=== PATIENT | female | born 1965 | race Caucasian/White ===

== ENCOUNTER 2019-12-19 14:46 | Emergency (ER) | payer OTHER, SELFPAY ==
--- NOTE | ~2019-12-19 | XR_ITS ---
EXAMINATION: XR chest 2V DATE: 12/19/2019 15:56 INDICATION: Cough and flu, history of tobacco use TECHNIQUE: PA and lateral views of the chest are obtained. COMPARISON: 03/04/2014 FINDINGS: There are airspace opacities in the right middle and lower lobes. There is no pleural effus ion or pneumothorax. The cardiomediastinal silhouette is normal. There is moderate thoracic spondylos is. IMPRESSION: 1. Airspace opacities of the right middle and lower lobes, likely pneumonia. Reviewed, dictated and finalized at location A. OR ASSISTANT
[2019-12-19 14:56] VITALS: BP 141/69; PULSE 74; RESP 20; TEMP 39.1; O2SAT 100
--- NOTE | 2019-12-19 15:34 | ED.GENADULT ---
HPI - General Adult General Chief complaint: Upper Respiratory Infection Stated complaint: Cough,Chills Time Seen by Provider: 12/19/19 15:34 Source: patient Mode of arrival: ambulatory Limitations: no limitations History of Present Illness HPI narrative: 54-year-old female patient presents to the [facility] with complaints of cough chills, runny nose, stuffy nose, fatigue and overall weakness. Patient states that she did get a flu shot this year. Patient states she has been babysitting her grandchildren this week who were diagnosed with influenza last week. Patient states that her symptoms started yesterday. Patient states she has been taking ibuprofen for her symptoms. Patient is an active smoker. Related Data Home Medications Medication Instructions Recorded Confirmed atenolol 100 mg tablet 100 mg PO DAILY 10/28/19 melatonin 5 mg capsule mg PO PRN 10/28/19 metformin 500 mg 24 hr 500 mg PO DAILY 10/28/19 tablet,extended release methocarbamol 750 mg tablet 750 mg PO ONCE PRN tablet 10/28/19 milk thistle 150 mg capsule 150 mg PO BID 10/28/19 ranitidine HCl 300 mg capsule 300 mg PO DAILY 10/28/19 sertraline 25 mg tablet 25 mg PO DAILY 10/28/19 ropinirole mg 12/19/19 Allergies Allergy/AdvReac Type Severity Reaction Status Date / Time No Known Allergies Allergy Verified 10/28/19 15:25 Review of Systems Review of Systems: Narrative: CONSTITUTIONAL: Positive fever, chills, body aches and sweats. EYES: Denies visual changes, redness, or discharge. ENT: Positive rhinorrhea, congestion, denies sore throat, or otalgia. CARDIOVASCULAR: Denies chest pain, palpitations, or edema. RESPIRATORY: Positive cough with dyspnea. GASTROINTESTINAL: Denies abdominal pain, nausea, vomiting, or diarrhea. GENITOURINARY: Denies dysuria or hematuria. SKIN: Denies rash or itching. MUSCULOSKELETAL: Denies back pain, joint pain, or myalgia. NEUROLOGIC: Denies headache, numbness, or weakness. PSYCHIATRIC: Denies anxiety or depression. [facility] Family History Family History Mother Hypertension Patient's mother is Father Family history of diabetes mellitus in first degree relative Social History Social History Smoking packs per day: 1 Smoking cigarettes per day: 20.0 Smoking status: Current every day smoker Tobacco type: cigarettes Second hand tobacco smoke exposure: Yes Alcohol intake: current Comments At the time of my signature I agree with nursing past medical history, surgical, social, and family history. There is no relevant family history pertinent to the presenting complaint. Exam Narrative: Exam Narrative: GENERAL: ill-appearing, well-nourished, and in no acute distress. HEAD: Normocephalic, atraumatic. Tenderness noted to frontal maxillary sinuses on palpation EYES: PERRLA and EOMI. ENT: Nares with erythema and edema noted bilaterally, no rhinorrhea or epistaxis. Mucous membranes moist. Posterior pharynx with no erythema, tonsil enlargement, exudates or lesions present. Bilateral TMs are clear with no erythema or foreign bodies in the canal. NECK: Supple. No lymphadenopathy CHEST: Patient has decreased lung sounds noted throughout but worse in the left upper and left lower lobe. Patient is slightly tripoding and talking in slightly broken sentences and does have notable labored breathing.. HEART: Regular rate and rhythm. No murmur heard. Normal peripheral pulses. ABDOMEN: Soft, nontender, nondistended, normal active bowel sounds. EXTREMITIES: Normal range of motion. No edema. SKIN: Warm, dry, no rash. NEURO: No focal deficits. Alert and oriented x3. Course Reevaluation(s) Reevaluation #1: Reevaluated patient after her DuoNeb was completed. Patient states that she is feeling slightly better after receiving the DuoNeb. Patient's lung sounds continue to be diminished. Discussed
[2019-12-19] MEDS: ALBUTEROL SULFATE NEB 2.5 MG/3 ML INH INHALATION (16:01)
[2019-12-19] MEDS: IPRATROPIUM BR 0.02% INH SOLN 0.5 MG/2.5 ML VIAL INHALATION (16:02)
[2019-12-19 16:38] VITALS: RESP 18; O2SAT 95
== END 2019-12-19 16:38 | disposition home or self-care (01) ==
PROVIDERS: Emergency Provider Nurse Practitioner Family; PCP Internal Medicine
DX: J10.1 Influenza due to other identified influenza virus with other respiratory manifestations (principal); J18.9 Pneumonia, unspecified organism; F17.210 Nicotine dependence, cigarettes, uncomplicated; E78.00 Pure hypercholesterolemia, unspecified; I10 Essential (primary) hypertension; G47.30 Sleep apnea, unspecified; E11.9 Type 2 diabetes mellitus without complications
CPT/HCPCS: 71046; 87804; 94640; 99213; G0463

== ENCOUNTER 2020-10-02 10:19 | Emergency (ER) | payer OTHER, SELFPAY ==
--- NOTE | ~2020-10-02 | XR_ITS ---
EXAMINATION: XR elbow RT min 3V DATE: 10/02/2020 11:17 INDICATION: Right elbow pain post fall TECHNIQUE: Anteroposterior, two oblique and lateral views of the right elbow were obtained. COMPARISON: None. FINDINGS: Alignment is normal. No fracture or joint effusion. Joint spaces are normal. Mild soft tissue swellin g along the posterior medial aspect of the right elbow. IMPRESSION: 1. No right elbow joint effusion or osseous abnormality. Reviewed, dictated and finalized at location A. MING MILL SUPERVISOR
--- NOTE | ~2020-10-02 | XR_ITS ---
EXAMINATION: NASAL BONES-3+VIEWS DATE: 10/02/2020 11:17 INDICATION: Epistaxis post fall TECHNIQUE: AP and left and right lateral views of the nasal bones were obtained. COMPARISON: CT dated 09/07/2006 FINDINGS: No fractures identified. Specifically the nasal bones and visualized das of the orbits and paranas al sinuses appear intact. Unchanged mild leftward bowing of the nasal septum. No air-fluid levels a ppreciated within the paranasal sinuses. Hyperostosis frontalis. IMPRESSION: 1. No nasal bone fracture identified. Reviewed, dictated and finalized at location A. LE FOLD MACHINE OPERATOR
--- NOTE | ~2020-10-02 | XR_ITS ---
EXAMINATION: XR wrist RT min 3V DATE: 10/02/2020 10:40 INDICATION: Right wrist pain, swelling and bruising post fall TECHNIQUE: Posteroanterior, ulnar deviation, oblique, and lateral views of the right wrist were obtai yue. COMPARISON: none FINDINGS: Alignment is normal. No fracture. Moderate osteoarthritis at the first carpal metacarpal joint. Mild osteoarthritis at several of the visualized interphalangeal joints. Mild soft tissue swelling and sub cutaneous edema over the dorsum of the wrist. IMPRESSION: 1. No acute osseous abnormality. 2. Polyarticular osteoarthritis, moderate severity at the first carpometacarpal joint and mild at sev eral interphalangeal joints. Reviewed, dictated and finalized at location A. BRAKE TECHNICIAN IMPRESSION: 1. No acute osseous abnormality. 2. Polyarticular osteoarthritis, moderate severity at the first carpometacarpal joint and mild at several interphalangeal joints.
[2020-10-02 10:29] VITALS: BP 159/83; PULSE 70; RESP 18; TEMP 36.8; O2SAT 100
--- NOTE | 2020-10-02 11:05 | ED.GENADULT ---
HPI - General Adult General Chief complaint: Extremity Injury, Upper Stated complaint: Right Arm Pain Time Seen by Provider: 10/02/20 10:38 Source: patient and RN notes reviewed Mode of arrival: ambulatory Limitations: no limitations History of Present Illness HPI narrative: Patient presents today complaining of pain to her right elbow and wrist. States she has a history of dropfoot and occasionally trips and falls. She fell last night, striking her right arm against a wall, a few times until she fell down. She is complaining of pain in her right elbow, right wrist, and nose. Denies loss of consciousness, neck pain, back pain. She did have right-sided bloody nose last night as well. She currently rates her wrist pain 5/10. Denies numbness or tingling in the extremities. She has been taking ibuprofen without relief. MD complaint: Right wrist pain Related Data Home Medications Medication Instructions Recorded Confirmed melatonin 5 mg capsule mg PO 10/28/19 05/01/20 methocarbamol 750 mg tablet 750 mg PO ONCE tablet 10/28/19 05/01/20 milk thistle 150 mg capsule 150 mg PO BID 10/28/19 05/01/20 sertraline 25 mg tablet 25 mg PO DAILY 10/28/19 05/01/20 ascorbic acid (vitamin C) 500 mg 500 mg PO DAILY 04/26/20 05/01/20 tablet aspirin 325 mg tablet 325 mg PO DAILY 04/26/20 05/01/20 cholecalciferol (vitamin D3) 50 50 mcg PO DAILY 04/26/20 05/01/20 mcg (2,000 unit) capsule vitamin B complex 1 cap PO DAILY 04/26/20 05/01/20 Allergies Allergy/AdvReac Type Severity Reaction Status Date / Time No Known Allergies Allergy Verified 05/05/20 15:31 Review of Systems Review of Systems: Narrative: CONSTITUTIONAL: Denies body aches, fever, chills, or sweats. EYES: Denies visual changes, redness, or discharge. ENT: Denies rhinorrhea, congestion, sore throat, or otalgia. + Nose injury CARDIOVASCULAR: Denies chest pain, palpitations, or edema. RESPIRATORY: Denies cough or dyspnea. GASTROINTESTINAL: Denies abdominal pain, nausea, vomiting, or diarrhea. GENITOURINARY: Denies dysuria or hematuria. SKIN: Denies rash, itching, or wounds. MUSCULOSKELETAL: Denies back pain, or myalgia. + Right wrist and elbow pain NEUROLOGIC: Denies headache, numbness, tingling, or weakness. PSYCH: Denies depression or anxiety. [facility] Past Medical History Medical History (Updated 10/02/20 @ 14:57 by Mignon Arrieta, [facility], ) Foot drop Family History Family History Mother Hypertension Patient's mother is Father Family history of diabetes mellitus in first degree relative Social History Social History Smoking packs per day: 1 Smoking cigarettes per day: 20.0 Smoking status: Current every day smoker Tobacco type: cigarettes Second hand tobacco smoke exposure: Yes Alcohol intake: current Substance use: current Substance use type: marijuana Comments At time of signature, I have reviewed and agree with nursing past medical, surgical, social and family history unless otherwise noted. Please see nursing chart for further information. There is no relevant family history pertinent to the presenting complaint Exam Narrative: Exam Narrative: GENERAL: Well-appearing, well-nourished, and in no acute distress. HEAD: Normocephalic. EYES: EOMI. PERRL. No redness or drainage. Conjunctivae normal. ENT: Mucous membranes pink and moist. Tenderness to the nasal bridge with mild edema and ecchymosis without deformity. Dried blood in the right nare. Septum normal without hematoma. No rhinorrhea. NECK: Normal AROM. Supple. Nontender. No lymphadenopathy. CHEST: No respiratory distress. Clear to auscultation. HEART: Regular rate and rhythm. No murmur appreciated. Normal peripheral pulses. MUSCULOSKELETAL: No bony tenderness. EXTREMITIES: Right arm: Tenderness to the right lateral epicondyle. Tenderness
== END 2020-10-02 11:35 | disposition home or self-care (01) ==
PROVIDERS: Emergency Provider Nurse Practitioner; PCP Internal Medicine
DX: S00.33XA Contusion of nose, initial encounter (principal); W19.XXXA Unspecified fall, initial encounter; S60.221A Contusion of right hand, initial encounter; S56.911A Strain of unspecified muscles, fascia and tendons at forearm level, right arm, initial encounter; F17.210 Nicotine dependence, cigarettes, uncomplicated; E78.00 Pure hypercholesterolemia, unspecified; I10 Essential (primary) hypertension; G47.33 Obstructive sleep apnea (adult) (pediatric); E11.9 Type 2 diabetes mellitus without complications
CPT/HCPCS: 70160; 73080; 73110; 99214; G0463

== ENCOUNTER 2020-10-30 11:37 | Emergency (ER) | payer OTHER, SELFPAY ==
[2020-10-30 11:55] VITALS: BP 157/94; PULSE 70; RESP 18; TEMP 36.9; O2SAT 100
--- NOTE | 2020-10-30 12:12 | PC.NURSE ---
[facility] after hours emergency number called at [phone] at
--- NOTE | 2020-10-30 12:13 | ED.EYEPROB ---
HPI - Eye Problem General Chief complaint: Eye Problems Stated complaint: Left Eye Pain Time Seen by Provider: 10/30/20 12:00 Source: patient Mode of arrival: ambulatory Limitations: no limitations History of Present Illness HPI Narrative: Rasta Weber is a 55 yo female with a PMH of HTN, prediabetes, depression, and tobacco use, who comes to [facility] with left teye vision difficulty that started this morning. She has extended-wear contacts that she slept in last night and when she woke she could not see with her left thigh other than shapes and light, she has no pain, no swelling, her eye looks irritated but not injected. He has no nausea vomiting diarrhea or pain. She has not had this situation before this and came here rather than go to an [employer] worker at [place] because she thought it could be a corneal abrasion. Related Data Home Medications Medication Instructions Recorded Confirmed melatonin 5 mg capsule mg PO 10/28/19 05/01/20 methocarbamol 750 mg tablet 750 mg PO ONCE tablet 10/28/19 05/01/20 milk thistle 150 mg capsule 150 mg PO BID 10/28/19 05/01/20 sertraline 25 mg tablet 25 mg PO DAILY 10/28/19 05/01/20 ascorbic acid (vitamin C) 500 mg 500 mg PO DAILY 04/26/20 05/01/20 tablet aspirin 325 mg tablet 325 mg PO DAILY 04/26/20 05/01/20 cholecalciferol (vitamin D3) 50 50 mcg PO DAILY 04/26/20 05/01/20 mcg (2,000 unit) capsule vitamin B complex 1 cap PO DAILY 04/26/20 05/01/20 Allergies Allergy/AdvReac Type Severity Reaction Status Date / Time No Known Allergies Allergy Verified 05/05/20 15:31 Review of Systems Review of Systems: Narrative: CONSTITUTIONAL: Denies fever, chills, sweats. EYES: Denies visual changes, redness, discharge. ENT: Denies rhinorrhea, congestion, sore throat, otalgia. Loss of vision left eye CARDIOVASCULAR: Denies chest pain, palpitations, edema. RESPIRATORY: Denies dyspnea, wheezing, cough GASTROINTESTINAL: Denies abdominal pain, nausea, vomiting, diarrhea. GENITOURINARY: Denies dysuria, hematuria, abnormal discharge SKIN: Denies rash or itching. NEUROLOGIC: Denies numbness, or focal weakness. PSYCHIATRIC: Denies anxiety or depression. [facility] Past Medical History Medical History (Updated 10/30/20 @ 12:23 by Nadia Ramirez CNP) Essential (primary) hypertension Foot drop Other hyperlipidemia Type 2 diabetes mellitus Family History Family History Mother Hypertension Patient's mother is Father Family history of diabetes mellitus in first degree relative Social History Social History Smoking packs per day: 1 Smoking cigarettes per day: 20.0 Smoking status: Current every day smoker Tobacco type: cigarettes Second hand tobacco smoke exposure: Yes Alcohol intake: current Substance use: current Substance use type: marijuana Comments At time of signature, I agree with nursing past medical, surgical, social and family history. There is no relevant family history pertinent to the presenting complaint. Exam Narrative: Exam Narrative: GENERAL: This is a well-nourished, well-developed patient, in no distress. HEAD: normocephalic, atraumatic. EYES: Sclera clear/white. Vision is grossly intact. Has no pain in the left eye, no injection, patient denies ability to read, can see light and objects but unable to read eye chart EARS: External ears normal,. Hearing grossly intact. NOSE: External nose normal without nasal discharge, nares without redness, no rhinorrhea. THROAT: Mucous membranes moist, NECK: Neck supple, CARDIOVASCULAR: Regular rate and rhythm without murmurs, gallops, or rubs. RESPIRATORY: Clear to auscultation. Breath sounds equal bilaterally. No wheezes, rales, or rhonchi. GASTROINTESTINAL: Abdomen soft, non-tender, SKIN: warm, intact with no suspicious lesions or rash, good texture and turgor. NEURO: aw
--- NOTE | 2020-10-30 12:35 | PC.NURSE ---
[address] [facility] called back and recommended referral to [place] for evaluation. pt had been dc to f/u at [place] at 1215.
== END 2020-10-30 12:15 | disposition short-term general hospital (02) ==
PROVIDERS: Emergency Provider Nurse Practitioner; PCP Internal Medicine
DX: H53.9 Unspecified visual disturbance (principal); F17.210 Nicotine dependence, cigarettes, uncomplicated; I10 Essential (primary) hypertension; F32.9 Major depressive disorder, single episode, unspecified; R73.03 Prediabetes
CPT/HCPCS: 99212; G0463

== ENCOUNTER → 2022-02-06 12:56 | Outpatient (CLI) | payer OTHER, SELFPAY ==
--- NOTE | ~2022-02-06 | US_ITS ---
EXAMINATION: US transvaginal EXAM DATE: 02/06/2022 13:23 INDICATION: Postmenopausal bleeding. TECHNIQUE: Pelvic transvaginal sonogram was performed. There are multiple grayscale and Doppler imag es available for interpretation. There is no prior study for comparison. FINDINGS: Uterus measures 8.0 x 3.9 x 4.8 cm, with several fibroids measuring up to 1 cm in size End ometrial stripe measures 8 mm, within normal limits. There is no free pelvic fluid. Right adnexa: The ovary measures 0.8 x 0.8 x 1.0 cm and is morphologically normal. Ovarian vascular f low confirmed. Left adnexa: The ovary measures 1.8 x 1.0 x 1.6 cm and is morphologically normal. Ovarian vascular fl ow confirmed. IMPRESSION: 1. Endometrium 8 mm in thickness, considered mildly thickened for postmenopausal status. Differentia l diagnosis includes hyperplasia, polyp, cancer. 2. Small fibroids. Reviewed, dictated and finalized at location A. IMPRESSION: 1. Endometrium 8 mm in thickness, considered mildly thickened for postmenopaus al status. Differential diagnosis includes hyperplasia, polyp, cancer. 2. Small fibroids.
== END ==
PROVIDERS: PCP Internal Medicine; Visit Provider Obstetrics & Gynecology Gynecology
DX: N95.0 Postmenopausal bleeding (principal); D25.9 Leiomyoma of uterus, unspecified
CPT/HCPCS: 76830

== ENCOUNTER 2022-03-04 13:49 | Outpatient (CLI) | payer OTHER, SELFPAY ==
[2022-03-04 14:18] LABS: Anion Gap 7 mmol/L (8-16); Blood Urea Nitrogen 7 mg/dL (7-17); Calcium 9.3 mg/dL (8.4-10.2); Carbon Dioxide 27 mmol/L (22-30); Chloride 104 mmol/L (98-107); Estimated Glomerular Filt Rate > 60; Glucose 118 mg/dL (65-110); Potassium 4.9 mmol/L (3.4-5.0); Sodium 138 mmol/L (137-145)
== END 2022-03-04 13:50 | disposition home or self-care (01) ==
LOC: ANHLAB 13:51
PROVIDERS: PCP Internal Medicine; Visit Provider Anesthesiology
DX: E11.9 Type 2 diabetes mellitus without complications (principal)
CPT/HCPCS: 36415; 80048

== ENCOUNTER 2022-03-06 00:54 | Day surgery (SDC) | payer OTHER, SELFPAY ==
[2022-03-02 09:57] VITALS: BMI 33.3
--- NOTE | 2022-03-02 10:05 | PC.NURSE ---
Report to the Outpatient Waiting Room, entrance under the green pavilion located off [facility], at time __0600___ on date _03/06/22 . OR Time: . - You and your visitor will be asked a series of questions to screen for COVID 19 for your protection. - Only one visitor is allowed at this time. - The patient visitor is requested to leave or wait in car when not with patient. - A mask is required within the hospital. Patients may have clear liquids (water, carbonated beverages, clear teas, apple juice) until 3 hours prior to surgery with a maximum of 20 ounces. - No food from midnight until time of surgery - Infants may have breast milk until 4 hours before surgery, infant formula 6 hours prior to surgery. - Children will be allowed to drink immediately following surgery. If applicable, please bring a bottle or sippy cup to assist with drinking. Juice, water, soda, and popsicles are readily available. For infants on formula, please bring formula the day of surgery. Pacifiers are allowed. Take the following medications with a SIP of water the morning of surgery: ____ATENOLOL, SERTRALINE Medications to discontinue per physician VITAMINS, ASA Date to take last dose 03/02/22 Please no make-up, nail mohawk, hairspray, perfume, deodorant, or body powder the day of surgery. No jewelry (including any body piercings) or valuables the day of surgery, leave them at home. Please take a shower or bath the night before, or the morning of, surgery with an antibacterial soap. Wear comfortable, loose fitting clothing. Children are encouraged to wear pajamas. - Jewelry must be removed prior to entering the operating room. Rings and piercings that are not removed may be cut off. - The hospital will not accept responsibility for valuables. - Please leave all valuables, including medications, at home the day of surgery. If you are going home after surgery, a licensed experienced truck driver must drive you home. - NO public transportation without another adult. - We recommend that an adult stay with you for 24 hours following discharge. - We also recommend that you do not drive, make important decision, drink alcoholic beverages, or take any drugs that were not prescribed by your health care provider for at least 24 hours after your discharge time. For Pediatric surgeries, we recommend two adults accompany the child home (only one inside the building at this time). Follow any additional instructions given to you from your surgeon. If you or anyone in your household have experienced Covid symptoms in the past week, please notify your surgeon or the nurse liaison at the phone number below for possible testing. Telephone instructions given to _PATIENT and asked if any additional questions and then verbalized understanding. Patient advised to call surgeon office or pre surgery nurse liaison [phone] if any additional questions.
[2022-03-06] MEDS: ACETAMINOPHEN 500 MG TABLET 1000 MG PO (06:11)
[2022-03-06] MEDS: LACTATED RINGERS 1,000 ML 30 ML IV CONT (06:30)
[2022-03-06 06:45] VITALS: BP 165/96; PULSE 70; RESP 16; TEMP 36.1; O2SAT 98
--- NOTE | 2022-03-06 07:01 | WPDHPUPDATE1 ---
History and Physical Update Update Date/Time: 03/06/22 07:01 History and Physical has been reviewed, including an updated exam of the patient. There are NO changes in the patient's condition. Risks, benefits, and alternatives have been discussed and questions answered. Patient agrees to proceed with procedure.
--- NOTE | 2022-03-06 07:01 | PM.HPGS ---
History of Present Illness History of Present Illness Consent: Risks, benefits, and alternatives have been discussed and questions answered. Patient agrees to proceed with procedure. Chief complaint: Post Menopausal Bleeding Narrative: Rasta Weber is a 56 year old female with postmenopausal bleeding and a thickened endometrium at 8mm. It is recommended to proceed with D&C hysteroscopy. Risks of infection, bleeding, perforation, and fluid overload were reviewed. Possible pathology was discussed. Patient voiced understanding and agrees to proceed. Review of Systems Review of Systems: not repeated day of surgery; patient states no changes in status [facility] Past Medical History Medical History (Updated 03/06/22 @ 07:05 by Manasa Olson MD) Anxiety Aortic valve stenosis Essential (primary) hypertension Foot drop (normal spontaneous vaginal delivery) X2 Obstructive sleep apnea (adult) (pediatric) Other hyperlipidemia Type 2 diabetes mellitus Surgical History Surgical History (Updated 03/06/22 @ 07:04 by Manasa Olson MD) Previous back surgery Family History Family History Mother Hypertension Patient's mother is Father Family history of diabetes mellitus in first degree relative Sibling Hemochromatosis Social History Social History Smoking packs per day: 1 Smoking cigarettes per day: 20.0 Years smoked: 45 Smoking pack-years: 45.00 Smoking status: Current every day smoker Tobacco type: cigarettes Second hand tobacco smoke exposure: Yes Alcohol intake: current Drinks per week: 10 Alcohol use details: social Substance use: current Substance use type: marijuana Other substance usage details: EDIBLES- DAILY FOR SLEEP Living arrangements: with family Meds Home Medications and Allergies Home Medications Medication Instructions Recorded Confirmed Type melatonin 5 mg capsule 5 mg PO HS PRN 10/28/19 03/06/22 History milk thistle 150 mg capsule 150 mg PO DAILY 10/28/19 03/06/22 History aspirin 325 mg tablet 325 mg PO DAILY 04/26/20 03/06/22 History cholecalciferol (vitamin D3) 50 50 mcg PO DAILY 04/26/20 03/06/22 History mcg (2,000 unit) capsule vitamin B complex 1 cap PO DAILY 04/26/20 03/06/22 History metformin 500 mg 24 hr 500 mg PO DAILY #90 tablet 11/07/21 03/06/22 Rx tablet,extended release potassium chloride 20 mEq 20 meq PO DAILY #90 tablet 11/07/21 03/06/22 Rx tablet,extended release atenolol 100 mg tablet 100 mg PO DAILY #90 tablet 02/06/22 03/06/22 Rx hydrochlorothiazide 12.5 mg capsule 12.5 mg PO DAILY #90 cap 02/06/22 03/06/22 Rx irbesartan 150 mg tablet 150 mg PO DAILY #90 tablet 02/06/22 03/06/22 Rx sertraline 25 mg tablet 25 mg PO DAILY #30 tablet 02/07/22 03/06/22 Rx gemfibrozil 600 mg tablet 600 mg PO BID #180 tablet 02/22/22 03/06/22 Rx Allergies Allergy/AdvReac Type Severity Reaction Status Date / Time No Known Allergies Allergy Verified 03/06/22 06:07 Vital Signs Vital Signs - 24 hr 03/06/22 06:45 Temperature 97 F L Pulse Rate 70 Respiratory Rate 16 Blood Pressure 165/96 H Pulse Oximetry 98 Exam Const: General: healthy appearing Orientation/consciousness: patient oriented x3 GI: GI Palp: Yes Soft to palpation, No Tenderness to palpation present (GI) and No Palpable mass present : External Female Exam: normal external appearance Speculum Exam - Vagina: normal appearance of the vagina and normal vaginal discharge Speculum Exam - Cervix: normal appearance of the cervix Bimanual exam- vagina & uterus: uterine size normal and consistency normal Bimanual Exam- Adnexa, other: normal adnexae and No adnexal tenderness Neuro: General: patient oriented x3 Assessment and Plan Assessment and plan (1) Post-menopausal bleeding: Code(s): N95.0 - Postmenop
[2022-03-06 07:05] LABS: Glucose Point of Care 171 mg/dl (65-105)
--- NOTE | 2022-03-06 07:12 | WPDANESEPPF ---
Anes - Initial Pre Proc Eval Procedure: Operation Date: 03/06/22 07:30 Proposed Procedures p Hysteroscopy with Dilation and Curettage - Manasa Olson MD Date/Time: 03/06/22 07:12 Surgeon: Manasa Olson MD Pre Op Diagnosis: Post Menopausal Bleeding Patient Data Age: 56 Gender: F Height: 1.55 m Weight: 75.7 kg Last Vital Signs Temp 36.1 C L 03/06/22 06:45 Pulse 70 03/06/22 06:45 Resp 16 03/06/22 06:45 BP 165/96 H 03/06/22 06:45 Pulse Ox 98 03/06/22 06:45 Allergies Allergy/AdvReac Type Severity Reaction Status Date / Time No Known Allergies Allergy Verified 03/06/22 06:07 Home Medications Medication Instructions Recorded Confirmed Type melatonin 5 mg capsule 5 mg PO HS PRN 10/28/19 03/06/22 History milk thistle 150 mg capsule 150 mg PO DAILY 10/28/19 03/06/22 History aspirin 325 mg tablet 325 mg PO DAILY 04/26/20 03/06/22 History cholecalciferol (vitamin D3) 50 50 mcg PO DAILY 04/26/20 03/06/22 History mcg (2,000 unit) capsule vitamin B complex 1 cap PO DAILY 04/26/20 03/06/22 History metformin 500 mg 24 hr 500 mg PO DAILY #90 tablet 11/07/21 03/06/22 Rx tablet,extended release potassium chloride 20 mEq 20 meq PO DAILY #90 tablet 11/07/21 03/06/22 Rx tablet,extended release atenolol 100 mg tablet 100 mg PO DAILY #90 tablet 02/06/22 03/06/22 Rx hydrochlorothiazide 12.5 mg capsule 12.5 mg PO DAILY #90 cap 02/06/22 03/06/22 Rx irbesartan 150 mg tablet 150 mg PO DAILY #90 tablet 02/06/22 03/06/22 Rx sertraline 25 mg tablet 25 mg PO DAILY #30 tablet 02/07/22 03/06/22 Rx gemfibrozil 600 mg tablet 600 mg PO BID #180 tablet 02/22/22 03/06/22 Rx Laboratory Tests 03/06/22 07:02 POC Capillary Glucose 171 mg/dl H mg/dl (65-105) Patient hx anesthesia problems: none Family hx anesthesia problems: none Results Review: All pre-operative results and documents have been reviewed as part of the pre-operative evaluation. [facility] Past Medical History Medical History (Updated 03/06/22 @ 07:15 by Manoj Campuzano MD) Anxiety Aortic regurgitation Essential (primary) hypertension Foot drop (normal spontaneous vaginal delivery) X2 Obstructive sleep apnea (adult) (pediatric) Other hyperlipidemia Type 2 diabetes mellitus Surgical History Surgical History (Updated 03/06/22 @ 07:04 by Manasa Olson MD) Previous back surgery Family History Family History Mother Hypertension Patient's mother is Father Family history of diabetes mellitus in first degree relative Sibling Hemochromatosis Social History Social History Smoking packs per day: 1 Smoking cigarettes per day: 20.0 Years smoked: 45 Smoking pack-years: 45.00 Smoking status: Current every day smoker Tobacco type: cigarettes Second hand tobacco smoke exposure: Yes Alcohol intake: current Drinks per week: 10 Alcohol use details: social Substance use: current Substance use type: marijuana Other substance usage details: EDIBLES- DAILY FOR SLEEP Living arrangements: with family Anes - Eval Final PreProcedure Day of Procedure 03/06/22 07:12 Patient weight: obese Heart: regular rate and rhythm Lungs: clear to auscultation and normal air movement Airway: Mallampati scale class II Neurological: alert and oriented Last oral intake: >/= 8 hours ASA classification: III Emergent: no Anesthetic plan: proceed Anesthesia type and monitoring: general GIVS and LMA Results Review: All pre-operative results and documents have been reviewed as part of the pre-operative evaluation. Informed Consent: The patient's anesthetic plan and its attendant risks and benefits were discussed with the patient/family/POA. Questions were solicited and answers provided to the satisfaction of the patient/family/POA.
--- NOTE | 2022-03-06 07:45 | P.OP_ITS ---
Procedure Note - Detailed Date of Procedure 03/06/22 Pre-op Diagnosis Post Menopausal Bleeding Post-op Diagnosis Same Procedure Performed D&C hysteroscopy Surgeon Manasa Olson MD Anesthesia MAC and Local Findings Uterus sounds to 7cm and endometrium appears grossly atrophic. Description of Procedure The patient was taken to the operating room and placed under anesthesia in the dorsal lithotomy position. She was prepped and draped in usual sterile fashion. Carmichaels speculum was placed in the vagina and the cervix is grasped on the anterior lip with a tenaculum. The cervix was injected in each quadrant with 1% lidocaine. The cervix is serially dilated with Hegar to an 8. The uterus is sounded to 7cm. The diagnostic hysteroscope was placed with the above-stated findings. The hysteroscope was removed and the medium sharp curette used to cur ette the endometrium until a good uterine cry was noted in all areas. Minimal material was obtained consistent with the atrophic appearance. All instruments are removed. Sponge, needle, and instrument counts are correct per the OR staff. Estimated Blood Loss 5 Drains No Packing No Pathology Yes (Endometrial curettings) Complications No immediate complications Condition Stable Disposition PACU
[2022-03-06 07:50] VITALS: BP 114/60; PULSE 96; RESP 14; O2SAT 96
[2022-03-06 08:03] LABS: Glucose Point of Care 150 mg/dl (65-105)
[2022-03-06 08:20] VITALS: BP 114/67; PULSE 61; RESP 20
[2022-03-06 08:45] VITALS: BP 113/69; PULSE 64; RESP 16
== END 2022-03-06 09:05 | disposition home or self-care (01) ==
PROVIDERS: PCP Internal Medicine; Visit Provider Obstetrics & Gynecology Gynecology
PROC: 0U5B8ZZ Destruction of Endometrium, Via Natural or Artificial Opening Endoscopic (ICD-10-PCS; CPT 58563; principal; 2022-03-06 07:30)
DX: N95.0 Postmenopausal bleeding (principal); E11.9 Type 2 diabetes mellitus without complications; I10 Essential (primary) hypertension; E78.49 Other hyperlipidemia; G47.33 Obstructive sleep apnea (adult) (pediatric); Z79.84 Long term (current) use of oral hypoglycemic drugs; F17.210 Nicotine dependence, cigarettes, uncomplicated; E66.9 Obesity, unspecified; Z68.31 Body mass index [BMI] 31.0-31.9, adult
CPT/HCPCS: 58558; 82948; 88305; A9270; J2250; J2704; J3010; J7030; J7120

== ENCOUNTER 2022-04-26 17:18 | Emergency (ER) | payer OTHER, SELFPAY ==
--- NOTE | ~2022-04-26 | XR_ITS ---
EXAMINATION: XR chest 2V Exam Date/Time: 04/26/2022 19:10 CDT HISTORY: difficulty breathing prod cough smoker Comparison: 12/19/2019. RESULT: Lines, tubes, and devices: None. Lungs and pleura: Unchanged reticulonodular opacities may reflect chronic bronchitis. Cardiomediastinal silhouette: Stable cardiomediastinal silhouette. Other: No acute osseous or upper abdominal finding. IMPRESSION: No acute cardiopulmonary process. Reviewed, dictated and finalized at location K.
[2022-04-26 17:32] VITALS: BP 149/97; PULSE 77; RESP 30; TEMP 37.1; O2SAT 99
[2022-04-26 17:33] VITALS: BP 149/97; PULSE 77; RESP 30; TEMP 37.1; O2SAT 99
[2022-04-26 18:34] VITALS: BP 138/80; PULSE 76; RESP 22; O2SAT 98
--- NOTE | 2022-04-26 19:03 | ED.URI ---
HPI - URI/Sore Throat General Chief Complaint: Upper Respiratory Infection Stated Complaint: sob Time Seen by Provider: 04/26/22 19:03 Source: patient, RN notes reviewed and old records reviewed Mode of arrival: ambulatory Limitations: no limitations History of Present Illness HPI Narrative: 57 year old female [facility] with complaints of productive cough with shortness of breath since 0300 this morning. Patient reports no known fevers has felt hot and sweaty. Patient has history of sleep apnea and aortic insufficiency and continues to use tobacco daily. Patient reports that had similar episode a few months back and though it was just stress. Patient reports that had recent URI.Patient has had COVID vaccinations and also flu shot in 2020. MD elicited complaint: cough and other (dyspnea, tobacco abuse) Pertinent past history: other (tobacco abuse, sleep apnea and aortic insufficiency) Onset (ago): hour(s) (0300 today) Related Data Home Medications Medication Instructions Recorded Confirmed melatonin 5 mg capsule 5 mg PO HS PRN sleeplessness 10/28/19 04/26/22 milk thistle 150 mg capsule 150 mg PO DAILY 10/28/19 04/26/22 aspirin 325 mg tablet 325 mg PO DAILY 04/26/20 04/26/22 cholecalciferol (vitamin D3) 50 50 mcg PO DAILY 04/26/20 04/26/22 mcg (2,000 unit) capsule vitamin B complex 1 cap PO DAILY 04/26/20 04/26/22 Allergies Allergy/AdvReac Type Severity Reaction Status Date / Time No Known Allergies Allergy Verified 04/26/22 17:32 Review of Systems Review of Systems: CONSTITUTIONAL: Denies known fever, chills, positive for sweats. EYES: Denies visual changes, redness, or discharge. ENT: Denies rhinorrhea, congestion, sore throat, or otalgia. CARDIOVASCULAR: Denies chest pain, palpitations, or edema. RESPIRATORY:Positive for cough or dyspnea. GASTROINTESTINAL: Denies abdominal pain, nausea, vomiting, or diarrhea. GENITOURINARY: Denies dysuria or hematuria. SKIN: Denies rash or itching. MUSCULOSKELETAL: chronic back pain, joint pain, or myalgia. NEUROLOGIC: Denies headache, numbness, or weakness. PSYCHIATRIC: Positive anxiety or depression. All systems reviewed & are unremarkable except as noted in HPI and below [facility] Past Medical History Medical History (Updated 04/30/22 @ 11:33 by Jessica Rowland NP) Anxiety Aortic regurgitation Essential (primary) hypertension Foot drop Hypertension (normal spontaneous vaginal delivery) X2 Obstructive sleep apnea (adult) (pediatric) Other hyperlipidemia Type 2 diabetes mellitus Surgical History Surgical History Previous back surgery Family History Family History Mother Hypertension Patient's mother is Father Family history of diabetes mellitus in first degree relative Sibling Hemochromatosis Social History Social History Smoking packs per day: 1 Smoking cigarettes per day: 20.0 Years smoked: 45 Smoking pack-years: 45.00 Smoking status: Current every day smoker Tobacco type: cigarettes Second hand tobacco smoke exposure: Yes Alcohol intake: current Drinks per week: 10 Alcohol use details: social Substance use: current Substance use type: marijuana Other substance usage details: EDIBLES- DAILY FOR SLEEP Comments At time of signature, agree with nursing past medical, surgical, social and family history. There is no relevant family history pertinent to the presenting complaint Exam Narrative: GENERAL: Well-appearing, well-nourished, and in no acute distress. HEAD: Normocephalic, atraumatic. EYES: PERRLA and EOMI. ENT: Nares clear, no rhinorrhea or epistaxis. Mucous membranes moist.TM's normal with good light reflex, throat pink with no lesions exudates or tonsil swelling NECK: Supple.no lymphadenopathy C
== END 2022-04-26 19:49 | disposition home or self-care (01) ==
PROVIDERS: Emergency Provider Registered Nurse
DX: J40 Bronchitis, not specified as acute or chronic (principal); R06.02 Shortness of breath; I10 Essential (primary) hypertension; E78.5 Hyperlipidemia, unspecified; E11.9 Type 2 diabetes mellitus without complications; F17.210 Nicotine dependence, cigarettes, uncomplicated; Z79.82 Long term (current) use of aspirin
CPT/HCPCS: 71046; 99213; G0463

== ENCOUNTER 2023-05-03 13:57 | Emergency (ER) | payer OTHER, SELFPAY ==
--- NOTE | 2023-05-03 14:00 | ED.SKABFB ---
HPI - Skin/Abscess/Foreign Bdy General Chief complaint: Skin/Abscess/Foreign Body Stated complaint: Rash Right Leg Time Seen by Provider: 05/03/23 14:00 Source: patient Mode of arrival: ambulatory Limitations: no limitations History of Present Illness HPI narrative: Patient is a 58-year-old female who presents with red rash to right lower extremity. Patient states it is worsened over the past week. Today her skin feels tight and is read. Denies any itching or drainage from area. Has been taking ibuprofen and elevating leg. Denies any injury. States she is still able walk normally, denies any numbness, tingling, pain to foot. Related Data Home Medications Medication Instructions Recorded Confirmed melatonin 5 mg capsule 5 mg PO HS PRN sleeplessness 10/28/19 05/03/23 milk thistle 150 mg capsule 150 mg PO DAILY 10/28/19 05/03/23 aspirin 325 mg tablet 325 mg PO DAILY 04/26/20 05/03/23 cholecalciferol (vitamin D3) 50 50 mcg PO DAILY 04/26/20 05/03/23 mcg (2,000 unit) capsule vitamin B complex 1 cap PO DAILY 04/26/20 05/03/23 Allergies Allergy/AdvReac Type Severity Reaction Status Date / Time No Known Allergies Allergy Verified 05/03/23 14:07 Review of Systems Review of Systems: All systems reviewed & are unremarkable except as noted in HPI and below Constitutional: Constitutional: Denies body ache(s), Denies chills, Denies fatigue, Denies fever(s), Denies headache(s), Denies malaise and Denies weakness Eyes: Eyes: Denies blurry vision, Denies irritation and Denies loss of vision ENT: Denies otalgia, Denies headache(s), Denies nasal discharge, Denies sinus pain and Denies sore throat Cardiovascular: Cardiovascular: Denies chest pain, Denies irregular heart rhythm and Denies dyspnea Respiratory: Respiratory: Denies dyspnea Gastrointestinal: Gastrointestinal: Denies abdominal pain, Denies melena, Denies hematochezia, Denies diarrhea, Denies nausea and Denies vomiting Musculoskeletal: Musculoskeletal: Denies back pain, Denies myalgias and Denies arthralgias Integumentary/Breasts: Skin/Breast: Denies pruritus, Reports erythema, Denies rash and Reports skin swelling Neurologic: Denies headache(s), Denies loss of vision and Denies weakness Psychiatric: Psychiatric: Reports no additional psychiatric complaints Endocrine: Endocrine: Denies fatigue PMFSH Past Medical History Medical History (Updated 05/03/23 @ 14:27 by Erin Mendoza APRN) Anxiety Aortic regurgitation Essential (primary) hypertension Foot drop Hypertension (normal spontaneous vaginal delivery) X2 Obstructive sleep apnea (adult) (pediatric) Other hyperlipidemia Type 2 diabetes mellitus Surgical History Surgical History Previous back surgery Family History Family History Mother Hypertension Patient's mother is Father Family history of diabetes mellitus in first degree relative Sibling Hemochromatosis Social History Social History Smoking packs per day: 1 Smoking cigarettes per day: 20.0 Years smoked: 45 Smoking pack-years: 45.00 Smoking status: Current every day smoker Tobacco type: cigarettes Second hand tobacco smoke exposure: Yes Alcohol intake: current Drinks per week: 10 Alcohol use details: social Substance use: current Substance use type: marijuana Other substance usage details: EDIBLES- DAILY FOR SLEEP Living arrangements: with family Comments At time of signature, agree with nursing past medical, surgical, social and family history. There is no relevant family history pertinent to the presenting complaint. Exam Const: General: cooperative, healthy appearing, comfortable, no acute distress and well nourished Nutritional Appearance: well nourished Orientation/consciousness: patient orient
[2023-05-03 14:06] VITALS: BP 156/67; PULSE 70; RESP 20; TEMP 36.8; O2SAT 97
[2023-05-03 14:08] VITALS: BP 156/67; PULSE 70; RESP 20; TEMP 36.8; O2SAT 97
== END 2023-05-03 14:40 | disposition home or self-care (01) ==
PROVIDERS: Emergency Provider Nurse Practitioner Family; PCP Internal Medicine
DX: L03.115 Cellulitis of right lower limb (principal); F17.210 Nicotine dependence, cigarettes, uncomplicated; I10 Essential (primary) hypertension; E78.49 Other hyperlipidemia; E11.9 Type 2 diabetes mellitus without complications; Z79.82 Long term (current) use of aspirin; I35.1 Nonrheumatic aortic (valve) insufficiency
CPT/HCPCS: 99213; G0463

== ENCOUNTER 2023-06-29 07:39 | Outpatient (CLI) | payer OTHER, SELFPAY ==
--- NOTE | 2023-06-29 07:49 | ECHO_ITS ---
Patient Info Name: Rasta Weber Age: 58 years : 1965 Gender: Female Ht: 62 in Wt: 180 lbs BSA: 1.92 m2 HR: 66 bpm BP: 134 / 75 mmHg Heart Rhythm: Sinus Rhythm Technical Quality: Fair Exam Date: 06/29/2023 8:07 AM Exam Location: [facility] Pulmonary Patient Status: Outpatient Admit Date: 06/29/2023 Staff Ordering Physician: Antonio Krueger DO Air Compressor Mechanic: Harriet Stephenson RDCS Attending Provider: Antonio Krueger DO Referring Physician: Evans BRADY; Exam Type: CA echo doppler color flow Study Info Indications I35.0 - Nonrheumatic aortic (valve) stenosis Complete two-dimensional, color flow and Doppler transthoracic echocardiogram is performed. Summary 1. Left ventricular chamber dimension is normal. 2. Left ventricular systolic function is normal, estimated at 60-65%. 3. There is no increased left ventricular wall thickness. 4. The left ventricular diastolic function is normal. 5. The aortic valve is not well visualized. 6. There is no hemodynamically significant aortic valve stenosis. 7. There is trace aortic valve regurgitation. 8. There is mild aortic valve calcification. 9. There is trace mitral valve regurgitation. Left Ventricle Left ventricular chamber dimension is normal. Left ventricular systolic function is normal, estimated at 60-65%. There is no increased left ventricular wall thickness. The left ventricular diastolic function is normal. Right Ventricle Right ventricular chamber dimension is normal. Right ventricular systolic function is normal. Left Atria Left atrial chamber dimension is normal. Right Atria Right atrial chamber dimension is normal. Aortic Valve The aortic valve is not well visualized. There is no hemodynamically significant aortic valve stenosis. There is trace aortic valve regurgitation. There is mild aortic valve calcification. Pulmonic Valve The pulmonic valve is not well visualized. Mitral Valve The mitral valve has thickened leaflets. There is trace mitral valve regurgitation. The mitral valve annulus is mildly calcified. Tricuspid Valve The tricuspid valve leaflets are normal. There is trace tricuspid valve regurgitation. No pulmonary hypertension, estimated pulmonary arterial systolic pressure is 17 mmHg. Pericardium/Pleural The pericardium appears normal. There is small pericardial effusion. Inferior Vena Cava Normal inferior vena cava with >50% collapse upon inspiration consistent with normal right atrial pressure, 5 mmHg. Aorta The aortic root size at the sinus of Valsalva is normal. There is mild-moderate aortic atherosclerosis. Left Ventricular Outflow Tract Name Value Normal LVOT 2D LVOT Diameter 1.9 cm LVOT Doppler LVOT Peak Gradient 9 mmHg LVOT Mean Gradient 5 mmHg LVOT VTI 34 cm LVOT VTI/AV VTI Ratio 0.8 LVOT Stroke Volume 95 ml LVOT CO 5.7 l/min LVOT CI 3.0 l/min/m2 Pulmonic Valve Name
--- NOTE | 2023-07-02 10:24 | WPDPFTINT ---
PFT Procedure Performed PFT Procedure Performed Spirometry with Pre/Post Bronchodilator Plethysmography (Lung Vol) Diffusing Cap (DLCO) Flow Vol Loop PFT Interpretation Lung volumes were measured with the body plethysmography method. The elevated RV and FRC are indicative of air trapping. Spirometry showed diminished expiratory flow rates and a diminished FEV1 to FVC ratio of 64%, indicative of obstructive airway disease. Following administration of a bronchodilator there was borderline increase in forced vital capacity. Lung diffusion capacity is normal at 74% predicted. The flow-volume loop is consistent with obstructive airway disease. Impression: Moderately severe obstructive airway disease with evidence of air trapping and no response to bronchodilators on this testing. Lung diffusion capacity within the normal range.
== END 2023-06-29 07:40 | disposition home or self-care (01) ==
PROVIDERS: PCP Internal Medicine; Visit Provider Internal Medicine
DX: I35.0 Nonrheumatic aortic (valve) stenosis (principal); F17.200 Nicotine dependence, unspecified, uncomplicated; R06.00 Dyspnea, unspecified; R94.2 Abnormal results of pulmonary function studies
CPT/HCPCS: 93306; 94060; 94726; 94729

== ENCOUNTER → 2023-07-11 14:23 | Outpatient (CLI) | payer OTHER, SELFPAY ==
--- NOTE | ~2023-07-11 | US_ITS ---
EXAMINATION: US transvaginal DATE: 07/11/2023 15:09 INDICATION: Postmenopausal bleeding TECHNIQUE: Multiple endovaginal sonographic images of the pelvis were obtained. COMPARISON: 02/06/2022 FINDINGS: The uterus measures 8 x 3.9 x 4.9 cm. The endometrial complex measures 7 mm. The left ovary is not visualized however no left adnexal abnormality is seen. The right ovary measures 2.5 x 1.8 x 1.4 cm and contains a 1.2 cm cyst. There is normal vascular flow in the right ovary. There is no free fluid in the pelvis. IMPRESSION: 1. Chronic mild endometrial thickening which may be due to hyperplasia, polyp, or malignancy. Conside r endometrial sampling. Reviewed, dictated and finalized at location D. IMPRESSION: 1. Chronic mild endometrial thickening which may be due to hyperplasia, polyp, or malignancy. Consider endometrial sampling.
== END ==
PROVIDERS: PCP Internal Medicine; Visit Provider Obstetrics & Gynecology Gynecology
DX: N95.0 Postmenopausal bleeding (principal); R93.89 Abnormal findings on diagnostic imaging of other specified body structures
CPT/HCPCS: 76830

== ENCOUNTER 2023-07-24 10:05 | Outpatient (CLI) | payer OTHER, SELFPAY ==
--- NOTE | ~2023-07-24 | CT_ITS ---
EXAMINATION:CT lung screening DATE: 07/24/2023 10:29 INDICATION: Personal history of nicotine dependence. Current smoker with 75 pack year history. TECHNIQUE: Computed tomography (CT) of the chest was performed without intravenous contrast. Automate d exposure control and iterative reconstruction technique were employed. The dose-length product (DLP ) was 128.47 mGy-cm. COMPARISON: CT abdomen and pelvis 12/03/2018 FINDINGS: There is mild emphysema. There is mild atelectasis bilaterally. There is a 3 mm nodule in r ight middle lobe. There are a few scattered 1-2 mm pulmonary nodules. No pleural effusion. The heart size is normal. There are coronary artery calcifications. No pericardial effusion. There is diffuse h epatic steatosis. There is severe thoracic spondylosis. IMPRESSION: 1. Lung-RADS category 2: Benign appearance or behavior. Continue annual screening with noncontrast lo w-dose chest CT in 12 months. Reviewed, dictated and finalized at location E. IMPRESSION: 1. Lung-RADS category 2: Benign appearance or behavior. Continue annual screeni ng with noncontrast low-dose chest CT in 12 months.
== END 2023-07-24 10:06 | disposition home or self-care (01) ==
PROVIDERS: PCP Internal Medicine; Visit Provider Internal Medicine Pulmonary Disease
DX: Z12.2 Encounter for screening for malignant neoplasm of respiratory organs (principal); Z87.891 Personal history of nicotine dependence
CPT/HCPCS: 71271

== ENCOUNTER 2023-07-25 08:05 | Outpatient (CLI) | payer OTHER, SELFPAY ==
[2023-07-25 08:41] LABS: Anion Gap 5 mmol/L (8-16); Blood Urea Nitrogen 14 mg/dL (7-17); Calcium 9.5 mg/dL (8.4-10.2); Carbon Dioxide 33 mmol/L (22-30); Chloride 97 mmol/L (98-107); Estimated Glomerular Filt Rate > 60; Glucose 345 mg/dL (65-110); Potassium 4.6 mmol/L (3.4-5.0); Sodium 135 mmol/L (137-145)
== END 2023-07-25 08:06 | disposition home or self-care (01) ==
LOC: ANHSURGERY 08:09
PROVIDERS: Anesthesiology; PCP Internal Medicine; Visit Provider Obstetrics & Gynecology Gynecology
DX: E11.9 Type 2 diabetes mellitus without complications (principal); Z01.818 Encounter for other preprocedural examination
CPT/HCPCS: 36415; 80048

== ENCOUNTER 2023-07-30 01:06 | Day surgery (SDC) | payer OTHER, SELFPAY ==
[2023-07-18 13:22] VITALS: BMI 33.1
--- NOTE | 2023-07-18 13:27 | PC.NURSE ---
Addendum entered by Beverley Navarrete RN 07/19/23 14:22: PLEASE HOLD YOUR IRBESARTAN MORNING OF SURGERY UNTIL AFTER SURGERY. Original Note: Report to the Outpatient Waiting Room, entrance under the green pavilion located off [facility], at time _0745_ on date _[id number]_. Planned Procedure Time: _0945_. Time changes happen often and if your time is changed the preop area will call you the afternoon before. - You and your visitor will be asked to self-screen and do not enter if you have any COVID symptoms. - A mask is optional within the hospital at this time. Patients may have clear liquids (water, carbonated beverages, clear teas, apple juice) until 3 hours prior to surgery with a maximum of 20 ounces. - No food from midnight until time of surgery Take the following medications with a SIP of water the morning of surgery: ___Atenolol, Irbesartan, Sertraline and Trelegy DO NOT STOP ANY OF YOUR OTHER PRESCRIPTION MEDICATIONS PRIOR TO SURGERY ?EXCEPT THE FOLLOWING Medications to discontinue per physician ____All vitamins Date to take last nmmd___[id number] Please no make-up, nail belgian, hairspray, perfume, deodorant, or body powder the day of surgery. No jewelry (including any body piercings) or valuables the day of surgery, leave them at home. Please take a shower or bath the night before, or the morning of, surgery with an antibacterial soap. Wear comfortable, loose fitting clothing. - Jewelry must be removed prior to entering the operating room. Rings and piercings that are not removed may be cut off. - The hospital will not accept responsibility for valuables. - Please leave all valuables, including medications, at home the day of surgery. If you are going home after surgery, a licensed lease purchase driver must drive you home. - NO public transportation without another adult if you receive anesthesia. - We recommend that an adult stay with you for 24 hours following discharge. - We also recommend that you do not drive, make important decision, drink alcoholic beverages, or take any drugs that were not prescribed by your health care provider for at least 24 hours after your discharge time. Follow any additional instructions given to you from your surgeon. If you or anyone in your household have experienced Covid symptoms in the past week, please notify your surgeon or the nurse liaison at the phone number below for possible testing. Telephone instructions given to __Patient and asked if any additional questions and then verbalized understanding. Patient advised to call surgeon office or pre surgery nurse liaison [phone] if any additional questions.
[2023-07-30 08:13] LABS: Glucose Point of Care 305 mg/dl (65-105)
--- NOTE | 2023-07-30 08:15 | WPDHPUPDATE1 ---
History and Physical Update Update Date/Time: 07/30/23 08:15 History and Physical has been reviewed, including an updated exam of the patient. There are NO changes in the patient's condition. Risks, benefits, and alternatives have been discussed and questions answered. Patient agrees to proceed with procedure.
--- NOTE | 2023-07-30 08:15 | PM.HPGS ---
History of Present Illness History of Present Illness Consent: Risks, benefits, and alternatives have been discussed and questions answered. Patient agrees to proceed with procedure. Chief complaint: Post Menopausal Bleeding Narrative: Rasta Weber is a 58 year old female with 3 weeks bright red spotting. Patient with previous postmenopausal bleeding in January of 2022. Ultrasound at that time revealed a thickened endometrium and she underwent hysteroscopy D&C with atrophic findings and benign appearing endometrium. Patient has had no bleeding until the current episode. Pelvic ultrasound was repeated and still continues to show a chronic thickened endometrium. It was recommended to repeat the hysteroscopy D&C as it is been over a year. Risks of infection, bleeding, perforation, and possible pathology are again reviewed with the patient and she voices understanding and agrees to proceed. Review of Systems Review of Systems: not repeated day of surgery; patient states no changes in status [facility] Past Medical History Medical History (Updated 07/30/23 @ 08:19 by Manasa Olson MD) Anxiety Aortic regurgitation History of aortic valve stenosis Essential (primary) hypertension Foot drop Hypertension (normal spontaneous vaginal delivery) X2 Obstructive sleep apnea (adult) (pediatric) Other hyperlipidemia Type 2 diabetes mellitus Surgical History Surgical History (Updated 07/30/23 @ 08:19 by Manasa Olson MD) History of hysteroscopy January 2022 Previous back surgery Family History Family History Mother Hypertension Patient's mother is Father Family history of diabetes mellitus in first degree relative Sibling Hemochromatosis Social History Social History Smoking packs per day: 1 Smoking cigarettes per day: 20.0 Years smoked: 40 Smoking pack-years: 40.00 Smoking status: Current every day smoker Tobacco type: cigarettes Second hand tobacco smoke exposure: Yes Alcohol intake: current Drinks per week: 5 Alcohol use details: social Substance use: current Substance use type: marijuana Other substance usage details: EDIBLES- DAILY FOR SLEEP Lack of Transportation: No Lack of Food: Never True Current Housing: I Have Housing Concerned About Future Housing: No Difficulty Paying Gas/Electric Bills: No Difficulty Paying for Meds: No Currently Unemployed: No Education: Trade/Vocational Certificate Difficulty w/ Childcare or Family Care: No Living arrangements: with family Spiritual care concerns: No Meds Home Medications and Allergies Home Medications Medication Instructions Recorded Confirmed Type melatonin 5 mg capsule 5 mg PO HS PRN sleeplessness 10/28/19 07/18/23 History milk thistle 150 mg capsule 150 mg PO DAILY 10/28/19 07/18/23 History aspirin 325 mg tablet 325 mg PO DAILY 04/26/20 07/18/23 History cholecalciferol (vitamin D3) 50 50 mcg PO DAILY 04/26/20 07/18/23 History mcg (2,000 unit) capsule vitamin B complex 1 cap PO DAILY 04/26/20 07/18/23 History atenolol 100 mg tablet 100 mg PO DAILY #90 tabs 02/01/23 07/18/23 Rx hydrochlorothiazide 12.5 mg capsule 12.5 mg PO DAILY #90 caps 02/01/23 07/18/23 Rx irbesartan 150 mg tablet 150 mg PO DAILY #90 tabs 02/01/23 07/18/23 Rx gemfibrozil 600 mg tablet 600 mg PO BID #180 tabs 02/19/23 07/18/23 Rx metformin 500 mg 24 hr 500 mg PO DAILY #90 tabs 04/30/23 07/18/23 Rx tablet,extended release potassium chloride 20 mEq 20 meq PO DAILY #90 tabs 04/30/23 07/18/23 Rx tablet,extended release albuterol sulfate 90 mcg/actuation 2 puff inhalation QID PRN 06/07/23 07/18/23 Rx aerosol inhaler shortness of breath or wheezing #8.5 grams fluticasone fur. 100 mcg-umeclid 1 inh inhalation DAILY 07/18/23 07/18/23 History 62.5 mcg-vilant 25 mcg
[2023-07-30 08:20] VITALS: BP 181/68; PULSE 69; RESP 18; TEMP 37.1; O2SAT 97
[2023-07-30 08:37] VITALS: BP 174/80
[2023-07-30] MEDS: ACETAMINOPHEN 500 MG TABLET 1000 MG PO (08:55)
[2023-07-30] MEDS: LACTATED RINGERS 1,000 ML 30 ML IV CONT (08:56)
--- NOTE | 2023-07-30 09:13 | WPDANESEPPF ---
Anes - Initial Pre Proc Eval Procedure: Operation Date: 07/30/23 09:45 Proposed Procedures p Hysteroscopy Dilation and Curettage - Manasa Olson MD Date/Time: 07/30/23 09:13 Surgeon: Manasa Olson MD Pre Op Diagnosis: Post Menopausal Bleeding Patient Data Age: 58 Gender: F Height: 1.55 m Weight: 74 kg Last Vital Signs Temp 37.1 C 07/30/23 08:20 Pulse 69 07/30/23 08:20 Resp 18 07/30/23 08:20 BP 174/80 H 07/30/23 08:37 Pulse Ox 97 07/30/23 08:20 Allergies Allergy/AdvReac Type Severity Reaction Status Date / Time No Known Allergies Allergy Verified 07/30/23 08:28 Home Medications Medication Instructions Recorded Confirmed Type melatonin 5 mg capsule 5 mg PO HS PRN sleeplessness 10/28/19 07/30/23 History milk thistle 150 mg capsule 150 mg PO DAILY 10/28/19 07/30/23 History aspirin 325 mg tablet 325 mg PO DAILY 04/26/20 07/30/23 History cholecalciferol (vitamin D3) 50 50 mcg PO DAILY 04/26/20 07/30/23 History mcg (2,000 unit) capsule vitamin B complex 1 cap PO DAILY 04/26/20 07/30/23 History atenolol 100 mg tablet 100 mg PO DAILY #90 tabs 02/01/23 07/30/23 Rx hydrochlorothiazide 12.5 mg capsule 12.5 mg PO DAILY #90 caps 02/01/23 07/30/23 Rx irbesartan 150 mg tablet 150 mg PO DAILY #90 tabs 02/01/23 07/30/23 Rx gemfibrozil 600 mg tablet 600 mg PO BID #180 tabs 02/19/23 07/30/23 Rx metformin 500 mg 24 hr 500 mg PO DAILY #90 tabs 04/30/23 07/30/23 Rx tablet,extended release potassium chloride 20 mEq 20 meq PO DAILY #90 tabs 04/30/23 07/30/23 Rx tablet,extended release albuterol sulfate 90 mcg/actuation 2 puff inhalation QID PRN 06/07/23 07/30/23 Rx aerosol inhaler shortness of breath or wheezing #8.5 grams fluticasone fur. 100 mcg-umeclid 1 inh inhalation DAILY 07/18/23 07/30/23 History 62.5 mcg-vilant 25 mcg inhalat.powder (Trelegy Ellipta) sertraline 25 mg tablet See Rx Instructions .Route 07/26/23 07/30/23 Rx .COMPLEX #90 tabs Laboratory Tests 07/30/23 08:12 POC Capillary Glucose 305 H mg/dl (65-105) Patient hx anesthesia problems: none Family hx anesthesia problems: none Results Review: All pre-operative results and documents have been reviewed as part of the pre-operative evaluation. [facility] Past Medical History Medical History Anxiety Aortic regurgitation History of aortic valve stenosis Essential (primary) hypertension Foot drop Hypertension (normal spontaneous vaginal delivery) X2 Obstructive sleep apnea (adult) (pediatric) Other hyperlipidemia Type 2 diabetes mellitus Surgical History Surgical History History of hysteroscopy January 2022 Previous back surgery Family History Family History Mother Hypertension Patient's mother is Father Family history of diabetes mellitus in first degree relative Sibling Hemochromatosis Social History Social History Smoking packs per day: 1 Smoking cigarettes per day: 20.0 Years smoked: 40 Smoking pack-years: 40.00 Smoking status: Current every day smoker Tobacco type: cigarettes Second hand tobacco smoke exposure: Yes Alcohol intake: current Drinks per week: 5 Alcohol use details: social Substance use: current Substance use type: marijuana Other substance usage details: EDIBLES- DAILY FOR SLEEP Lack of Transportation: No Lack of Food: Never True Current Housing: I Have Housing Concerned About Future Housing: No Difficulty Paying Gas/Electric Bills: No Difficulty Paying for Meds: No Currently Unemployed: No Education: Trade/Vocational Certificate Difficulty w/ Childcare or Family Care: No Living arrangements: with family Spiritual care concerns: No Anes -
[2023-07-30 10:18] VITALS: BP 132/75; PULSE 68; RESP 14; O2SAT 100
--- NOTE | 2023-07-30 10:19 | P.OP_ITS ---
Procedure Note - Detailed Date of Procedure 07/30/23 Pre-op Diagnosis Post Menopausal Bleeding Post-op Diagnosis Same Procedure Performed D&C hysteroscopy Surgeon Manasa Olson MD Anesthesia MAC Findings Uterus sounds to 8cm. There is an anterior papillary appearing mass with 1 calcifications visible. The remainder of the endometrium appears atrophic. Description of Procedure The patient was taken to the operating room and placed under anesthesia in the dorsal lithotomy position. She was prepped and draped in the usual sterile fashion. [place] speculum was placed in the vagina and the cervix grasped on the anterior lip with a tenaculum. Uterus is sounded to 8cm. The diagnostic hysteroscope was placed and with the above-stated findings the Aveeta resection device was opened and placed. Under direct visualization the entire mass is removed. The hysteroscope is removed and the OO sharp curette is used to curette the endometrium until a good uterine cry was noted in all areas. Minimal material was obtained consistent with the visual appearance. All instruments are removed. The patient was awakened from anesthesia and taken to recovery in stable condition. Sponge, needle, and instrument counts are correct per the OR staff. Estimated Blood Loss 5 Drains No Packing No Pathology Yes (Endometrial shavings and curettings) Complications No immediate complications Condition Stable Disposition PACU
--- NOTE | 2023-07-30 10:30 | SUR.PHASEII ---
DR. FERREIRA NOTIIFIED RE: BLOOD SUGAR 241; HE SAID FOR PATIENT TO RESUME HOME MEDS TODAY; NO INTERVENTIONS ORDERED.
[2023-07-30 10:44] LABS: Glucose Point of Care 241 mg/dl (65-105)
[2023-07-30 10:45] VITALS: BP 147/69; PULSE 64; RESP 14; O2SAT 97
[2023-07-30 10:59] VITALS: BP 136/77; PULSE 62; RESP 14
== END 2023-07-30 11:30 | disposition home or self-care (01) ==
PROVIDERS: PCP Internal Medicine; Visit Provider Obstetrics & Gynecology Gynecology
PROC: 0U5B8ZZ Destruction of Endometrium, Via Natural or Artificial Opening Endoscopic (ICD-10-PCS; CPT 58563; principal; 2023-07-30 09:45)
DX: N95.0 Postmenopausal bleeding (principal); N84.0 Polyp of corpus uteri; E11.9 Type 2 diabetes mellitus without complications; F41.9 Anxiety disorder, unspecified; I10 Essential (primary) hypertension; G47.33 Obstructive sleep apnea (adult) (pediatric); E78.5 Hyperlipidemia, unspecified; I35.1 Nonrheumatic aortic (valve) insufficiency; F17.210 Nicotine dependence, cigarettes, uncomplicated; F12.90 Cannabis use, unspecified, uncomplicated; Z79.82 Long term (current) use of aspirin; Z79.84 Long term (current) use of oral hypoglycemic drugs; Z79.51 Long term (current) use of inhaled steroids; E66.9 Obesity, unspecified; Z68.30 Body mass index [BMI] 30.0-30.9, adult
CPT/HCPCS: 58558; 36415; 80048; 82948; 88305; A9270; J1885; J2250; J2405; J2704; J3010; J7120

== ENCOUNTER 2023-12-20 13:43 | Emergency (ER) | payer OTHER, SELFPAY ==
[2023-12-20 13:51] VITALS: BP 156/84; PULSE 82; RESP 18; TEMP 36.9; O2SAT 96
[2023-12-20 13:53] VITALS: BP 156/84; PULSE 82; RESP 18; TEMP 36.9; O2SAT 96
--- NOTE | 2023-12-20 14:13 | ED.URI ---
HPI - URI/Sore Throat General Chief Complaint: Ear Stated Complaint: Right Ear Irritation Time Seen by Provider: 12/20/23 13:58 Source: patient and RN notes reviewed Mode of arrival: ambulatory Limitations: no limitations History of Present Illness HPI Narrative: Patient presents today complaining of a 3 day history of right ear pain. States it initially felt full but now is painful. Denies drainage or decreased hearing. Currently rates her pain 6/10 and has been using ibuprofen and Flonase without much relief. Related Data Home Medications Medication Instructions Recorded Confirmed melatonin 5 mg capsule 5 mg PO HS PRN sleeplessness 10/28/19 12/20/23 milk thistle 150 mg capsule 150 mg PO DAILY 10/28/19 12/20/23 aspirin 325 mg tablet 325 mg PO DAILY 04/26/20 12/20/23 cholecalciferol (vitamin D3) 50 50 mcg PO DAILY 04/26/20 12/20/23 mcg (2,000 unit) capsule vitamin B complex 1 cap PO DAILY 04/26/20 12/20/23 Allergies Allergy/AdvReac Type Severity Reaction Status Date / Time No Known Allergies Allergy Verified 12/20/23 13:51 Review of Systems Review of Systems: CONSTITUTIONAL: Denies body aches, fever, chills, or sweats. EYES: Denies visual changes, redness, or discharge. ENT: Denies rhinorrhea, congestion, sore throat. + right ear pain and fullness CARDIOVASCULAR: Denies chest pain, palpitations, or edema. RESPIRATORY: Denies cough or dyspnea. GASTROINTESTINAL: Denies abdominal pain, nausea, vomiting, or diarrhea. GENITOURINARY: Denies dysuria or hematuria. SKIN: Denies rash, itching, or wounds. MUSCULOSKELETAL: Denies back pain, joint pain, or myalgia. NEUROLOGIC: Denies headache, numbness, tingling, or weakness. PSYCH: Denies depression or anxiety. [facility] Past Medical History Medical History Anxiety Aortic regurgitation History of aortic valve stenosis Essential (primary) hypertension Foot drop Hypertension (normal spontaneous vaginal delivery) X2 Obstructive sleep apnea (adult) (pediatric) Other hyperlipidemia Type 2 diabetes mellitus Surgical History Surgical History History of hysteroscopy January 2022 Previous back surgery Family History Family History Mother Hypertension Patient's mother is Father Family history of diabetes mellitus in first degree relative Sibling Hemochromatosis Social History Social History Smoking packs per day: 1 Smoking cigarettes per day: 20.0 Years smoked: 40 Smoking pack-years: 40.00 Smoking status: Current every day smoker Tobacco type: cigarettes Second hand tobacco smoke exposure: Yes Alcohol intake: current Drinks per week: 5 Alcohol use details: social Substance use: current Substance use type: marijuana Other substance usage details: EDIBLES- DAILY FOR SLEEP Lack of Transportation: No Lack of Food: Never True Current Housing: I Have Housing Concerned About Future Housing: No Difficulty Paying Gas/Electric Bills: No Difficulty Paying for Meds: No Currently Unemployed: No Education: Trade/Vocational Certificate Difficulty w/ Childcare or Family Care: No Living arrangements: with family Spiritual care concerns: No Comments At time of signature, I have reviewed and agree with nursing past medical, surgical, social and family history unless otherwise noted. Please see nursing chart for further information. There is no relevant family history pertinent to the presenting complaint Exam Narrative: GENERAL: Well-appearing, well-nourished, and in no acute distress. HEAD: Normocephalic, atraumatic. EYES: EOMI. No redness or drainage. Conjunctivae normal. ENT: Mucous membranes pink and moist. Nares clear. No rhinorrhe
== END 2023-12-20 14:26 | disposition home or self-care (01) ==
PROVIDERS: Emergency Provider Nurse Practitioner; PCP Internal Medicine
DX: H60.501 Unspecified acute noninfective otitis externa, right ear (principal); F17.210 Nicotine dependence, cigarettes, uncomplicated; F12.90 Cannabis use, unspecified, uncomplicated; I10 Essential (primary) hypertension; E78.49 Other hyperlipidemia; E11.9 Type 2 diabetes mellitus without complications; Z79.82 Long term (current) use of aspirin
CPT/HCPCS: 99213; G0463

== ENCOUNTER 2024-08-11 10:05 | Outpatient (CLI) | payer OTHER, SELFPAY ==
--- NOTE | ~2024-08-11 | CT_ITS ---
CT Scan of the Chest without Contrast: Clinical Indication: Lung cancer screening, nicotine dependence Technique: Contiguous sections were acquired throughout the chest without intravenous contrast. Dose reduction technique was used on this scan by utilizing automated exposure control and iterative recon struction technique. The dose-length product (DLP) was 75.68 mGy-cm. COMPARISON: 07/24/2023 Findings: There is no evidence of any significant mediastinal, hilar or axillary lymphadenopathy. Coronary colleen ry calcifications are noted. There is no evidence of pleural or pericardial effusion. Chronic scarring or atelectasis right middle lobe noted. No definite pulmonary nodule seen. Images through the upper abdomen reveal no abnormalities. Impression: Lung RADS 2: Benign appearance. 12 month follow-up screening CT advised. Reviewed, dictated and finalized at [facility]. Impression: Lung RADS 2: Benign appearance. 12 month follow-up screening CT advised.
== END 2024-08-11 10:06 | disposition home or self-care (01) ==
LOC: ANHIMG 10:07
PROVIDERS: PCP Internal Medicine; Visit Provider Internal Medicine Pulmonary Disease
DX: Z12.2 Encounter for screening for malignant neoplasm of respiratory organs (principal); F17.210 Nicotine dependence, cigarettes, uncomplicated
CPT/HCPCS: 71271

== ENCOUNTER 2025-04-15 08:39 | Outpatient (CLI) | payer OTHER, SELFPAY ==
--- NOTE | ~2025-04-15 | MR_ITS ---
MRI of the brain Clinical History: Gait abnormality Technique: Axial and sagittal T1-weighted images were acquired. These were followed by axial T2-weigh zee, diffusion weighted, gradient, and FLAIR images. Findings: There is no acute infarct, intracranial hemorrhage or mass lesion. There are minimal chroni c white matter changes in the periventricular matter bilaterally. Ventricles and subarachnoid spaces are unremarkable. Orbits are unremarkable. There is left maxillary sinus disease. Remaining paranasal sinuses and mastoid air cells are clear. Major intracranial flow voids appear intact. Sagittal midline structures are intact. IMPRESSION: Minimal chronic microvascular ischemic change. Left maxillary sinus disease. Reviewed, dictated and finalized at location .
== END 2025-04-15 08:40 | disposition home or self-care (01) ==
LOC: MICIMG 08:42
PROVIDERS: PCP Internal Medicine; Visit Provider Internal Medicine
DX: R26.9 Unspecified abnormalities of gait and mobility (principal); J32.0 Chronic maxillary sinusitis
CPT/HCPCS: 70551

== ENCOUNTER 2025-05-06 11:08 | Outpatient (CLI) | payer OTHER, SELFPAY ==
--- NOTE | ~2025-05-06 | MR_ITS ---
MRI of the lumbar spine Clinical History: Neuropathy Technique: Axial T2-weighted images, and sagittal T1-weighted, T2-weighted, and and T2 fat-sat images were acquired. Following intravenous administration of 13 cc MultiHance gadolinium, T1-weighted fat- sat imaging was performed in the axial and sagittal planes. Findings: There is no fracture or subluxation of the lumbar spine. Vertebral bodies maintain normal h eight and alignment. No bone marrow signal abnormality seen. At L1-L2, there is no disc bulge or herniation. No spinal canal stenosis or neural foraminal narrowin g. At L2-L3, there is no disc bulge or herniation. No spinal canal stenosis or neural foraminal narrowin g. At L3-L4, there is disc bulge with mild facet hypertrophy. No spinal canal stenosis. There is mild la teral neural foraminal narrowing. At L4-L5, there is severe degenerative distended. There is mild diffuse disc bulge with moderate to a dvanced facet arthropathy. No keenan central canal stenosis. There is advanced bilateral neural forami nal narrowing. At L5-S1, there is advanced degenerative disc narrowing. There is diffuse disc bulge with severe face t arthropathy. No central canal stenosis. There is severe bilateral neural foraminal narrowing. Paravertebral soft tissues are unremarkable. No abnormal postcontrast enhancement identified. Impression: Bilateral neural foraminal narrowing in particular at L4-L5 and L5-S1, as detailed above. Reviewed, dictated and finalized at [facility]. Impression: Bilateral neural foraminal narrowing in particular at L4-L5 and L5-S1, as ramez led above.
== END 2025-05-06 11:09 | disposition home or self-care (01) ==
LOC: MICIMG 11:11
PROVIDERS: PCP Internal Medicine
DX: M47.817 Spondylosis without myelopathy or radiculopathy, lumbosacral region (principal)
CPT/HCPCS: 72158; A9577

== ENCOUNTER 2025-08-17 14:00 | Outpatient (CLI) | payer OTHER, SELFPAY ==
--- NOTE | ~2025-08-17 | MR_ITS ---
EXAMINATION: MR cervical spine wo con DATE: 08/17/2025 14:48 INDICATION: Neuropathy. Walking difficulty. Loss of balance. TECHNIQUE: Magnetic resonance imaging (MRI) of the cervical spine was performed without intravenous contrast. COMPARISON: None FINDINGS: There is 4 degrees dextrocurvature of cervical spine. Vertebral body heights are normal. There is mildly decreased disc height at C3-C4 and severely decreased disc height at C4-C5. There is increased T2-weighted signal intensity in the spinal cord at C3-C4 and C4-C5, consistent with myelomalacia. Motion artifact decreases sensitivity and specificity. The following disc levels are specifically discussed: C2-C3: The disc does not extend beyond the endplate margin. There is mild left uncovertebral joint osteoarthritis. There is mild bilateral facet joint osteoarthritis. There is mild left neural foraminal stenosis. There is no central canal stenosis. C3-C4: There is a central extrusion. There is mild bilateral uncovertebral joint osteoarthritis. There is mild bilateral facet joint osteoarthritis. There is mild bilateral neural foraminal stenosis. There is severe central canal stenosis with ventral and dorsal indentation of the spinal cord. C4-C5: The disc is bulging. There is severe bilateral uncovertebral joint osteoarthritis. There is mild bilateral facet joint osteoarthritis. There is moderate bilateral neural foraminal stenosis. There is moderate central canal stenosis with ventral and dorsal indentation of the spinal cord. C5-C6: There is a central extrusion. There is moderate bilateral uncovertebral joint osteoarthritis. There is severe bilateral facet joint osteoarthritis. There is mild bilateral neural foraminal stenosis. There is mild central canal stenosis. C6-C7: There is a left central extrusion. There is mild bilateral uncovertebral joint osteoarthritis. There is severe right and moderate left facet joint osteoarthritis. There is mild right neural foraminal stenosis. There is mild central canal stenosis. C7-T1: The disc does not extend beyond the endplate margin. There is no uncovertebral joint osteoarthritis. There is moderate right and mild left facet joint osteoarthritis. There is mild right neural foraminal stenosis. There is no central canal stenosis. IMPRESSION: 1. Severe cervical spondylosis. 2. Increased T2-weighted signal intensity in the spinal cord at C3-C4 and C4-C5, consistent with myelomalacia. Motion artifact decreases sensitivity and specificity. Reviewed, dictated and finalized at location [facility]. IMPRESSION: 1. Severe cervical spondylosis. 2. Increased T2-weighted signal intensity in the spinal cord at C3-C4 and C4-C5 , consistent with myelomalacia. Motion artifact decreases sensitivity and speci ficity.
--- NOTE | ~2025-08-17 | MR_ITS ---
EXAMINATION: MR thoracic spine wo con DATE: 08/17/2025 14:50 INDICATION: Lumbar radiculopathy. TECHNIQUE: Magnetic resonance imaging (MRI) of the thoracic spine was performed without intravenous contrast. COMPARISON: Chest CT 08/11/2024 FINDINGS: There is 11 degrees dextroscoliosis of thoracic spine. Vertebral body heights are normal. There is moderately decreased disc height at T4-T5 and T5- T6, severely decreased disc height at T6-T7, moderately decreased disc height at T7-T8, and severely decreased disc height at T8-T9. There is multilevel [id number] facet joint osteoarthritis. On the left, there is mild neural foraminal stenosis at T1-T2. The discs are bulging from T4-T5 through T8-T9 with superimposed left central extrusion at T7-T8. At T9-T10, there is a central protrusion. There is mild central canal stenosis from T4-T5 through T9-T10. The spinal cord signal intensity is normal. The conus medullaris is at L1. IMPRESSION: 1. Severe thoracic spondylosis. 2. Thoracic dextroscoliosis. Reviewed, dictated and finalized at location [facility].
== END 2025-08-17 14:01 | disposition home or self-care (01) ==
LOC: MICIMG 14:01
PROVIDERS: PCP Internal Medicine
DX: M47.894 Other spondylosis, thoracic region (principal); M47.892 Other spondylosis, cervical region
CPT/HCPCS: 72141; 72146

== ENCOUNTER 2025-08-25 14:55 | Outpatient (CLI) | payer OTHER, SELFPAY ==
--- NOTE | ~2025-08-25 | CT_ITS ---
EXAMINATION: CT lung screening DATE: 08/25/2025 15:21 INDICATION: Personal history of nicotine dependence. TECHNIQUE: Computed tomography (CT) of the chest was performed without intravenous contrast. The dose-length product was 72.05 mGy-cm. Automated exposure control and iterative reconstruction technique were employed. COMPARISON: CT dated 08/11/2024 FINDINGS: Heart size normal. Mild atherosclerosis. No significant pleural or pericardial effusion. Upper abdomen is unremarkable. There is emphysema. There is left upper lobe scarring in the apex. No suspicious pulmonary nodules or masses. Mild thoracic spondylosis. IMPRESSION: 1. Lung-RADS category 1: Negative. Continue annual screening with noncontrast low-dose chest CT in 12 months. Reviewed, dictated and finalized at location O. ET TAKER [facility]ERRY[facility] IMPRESSION: 1. Lung-RADS category 1: Negative. Continue annual screening with noncontrast l ow-dose chest CT in 12 months.
--- OUTSIDE RECORDS SUMMARY | 2025-08-25 16:23 | XMS_ITS | Clinical Summary ---
Author Organization [facility] Address [address] [place] [address] Care Team Providers Care Flour Mixer Name Role Phone Corey De La O DO Primary Care Provider [phone] Allergies No known active allergies Medications aspirin 325 mg tablet take 1 tablet (325MG) by oral route every day 0 05/10/2012 Active atenolol (TENORMIN) 100 mg tablet take 1 tablet (100MG) by oral route every day 0 05/10/2012 Active b complex vitamins (B-100 COMPLEX) tablet take 1 by Oral route once 0 0 12/17/2015 Active irbesartan (AVAPRO) 150 mg tablet TK 1 T PO QD 5 08/05/2018 Active metFORMIN XR (GLUCOPHAGE XR) 500 mg 24 hr tablet TK 1 T PO QD 5 08/05/2018 Active POTASSIUM CHLORIDE ER 20 mEq CR tablet TK 1 T PO QD 5 08/05/2018 Ac tive sertraline (ZOLOFT) 25 mg tablet TK 1 T PO Q DAY 4 08/05/2018 Active hydroCHLOROthia zide (MICROZIDE) 12.5 mg capsule Take 1 capsule (12.5 mg total) by mouth daily 5 09/01/2018 Active Trelegy Ellipta 100-62.5-25 mcg inhaler 1 puff daily 04/27/2024 Active gemfibroziL (LOPID) 600 mg tablet 02/12/2024 Active Active Problems Problem Noted Date Diagnosed Date Keratitis, left 11/02/2020 Assessment & Plan (11/03/2020 8:26 AM CLINICAL DIETETIC TECHNICIAN): Seen in [facility] ED 10/30/20 with sudden onset blurry vision OS. No prior episodes. Long-term CTL wearer, sleeps with lenses. VA 20/200 PH 20/20, IOP 25, diffuse SPEE/MCE, central D-folds, punctate endothelial deposits inferonasally s/f KP. Normal DFE, B-scan w/o vitreitis. Started on Valtrex, timolol, and PF QID. Today with completely resolved symptoms by 10/31 to 11/01. Exam with lingering mild AC cell, but otherwise unremarkable with intact corneal sensation and normal IOP on timolol BID OS. Macula OCT is unremarkable OU. PLAN: - Continue Valtrex 1g TID to complete 10 day course, consider chronic dose (1 g daily) pending repeat exams - Stop timolol BID left eye - PF taper to TID for 1 week, then BID until next visit - Continue to abstain from CTL use until cleared by us Parotitis 02/20/2017 Chronic infection of sinus 12/18/2016 Hoarseness 12/18/2016 Cough 12/18/2016 Essential hypertension 12/17/2015 Overview (01/26/2017): Essential hypertension Obesity with body mass index 30 or greater 12/17 Overview (01/26/2017): Obesity (BMI 30-39.9) Aortic valve insufficiency 12/17/2015 Overview (01/26/2017): Nonrheumatic aortic valve insufficiency Multiple-type hyperlipidemia 12/17/2015 Overview (01/26/2017): Mixed hyperlipidemia Current smoker 12/17/2015 Overview (01/26/2017): Smoker Obstructive sleep apnea syndrome 12/17/2015 Overview (01/26/2017): YOU (obstructive sleep apnea) Foot-drop 07/21/2015 Hypertension 11/24/2011 Lumbago 11/24/2011 Surgical History Surgery Date Site/Laterality Comments LAMINECTOMY Medical History Medical History Date Comments Hx Other Medical you; Comments: LELO 12/17/2015 - Hx Other Medical obesity; Commen ts: LELO 12/17/2015 - Hx Other Medical Back surgery an d chronic pain; Comments: LELO 12/17/2015 - Diabetes mellitus Gastric reflux Gout Heart murmur Valvular disease Hypertension Neuromuscular disorder Aortic insufficiency Family History Medical History Relation Name Comments Coronary artery disease Father Deena nary Artery Disease; Diabetes Father Diabetes mellit us; Hypertension Father Hypertension; Uterine cancer Mother Cancer, uteri ne; Diabetes Sister 1 Diabetes mellit us; Hypertension Sister 2 Hypertension; Relation Name Status Comments Father Alive Mother Sister 1 Sister 2 Social History Tobacco Use Types Packs/Day Years Used Date Smoking Tobacco: Heavy Smoker Cigarettes Smokeless Tobacco: Never Tobacco Cessation:Ready to Q uit: Not Asked; Counseling Given: No Comments:Smoking History Packs/day: 1 Packs Alcohol Use Standard Drinks/Week Comments Yes 0 (1 standard drink = 0.6 oz pur e alcohol) socially Comments No Sex and Gender Information Value Date Recorded Sex Assigned at Not on file Legal Sex Female 12:27 AM CLINICAL DIETETIC TECHNICIAN Gender Identity Female 08/13/2018 9:06 AM CDT Sexual Orientation Not on file Last Filed Vital Signs Vital Sign Reading Time Taken Comments Blood Pressure 163/83 04/02/2025 12:57 PM CDT Pulse 87 04/02/2025 12:57 PM CDT Temperature 36.3 C (97.3 F) 04/02/2025 12:57 PM CDT Respiratory Rate 16 10/30/2020 5:24 PM CLINICAL DIETETIC TECHNICIAN Oxygen Saturation 97% 04/02/2025 12:57 PM CDT Inhaled Oxygen Concentration - - Weight 64.9 kg (143 lb) 05/21/2025 12:01 PM CDT Height 154.9 cm (5' 1) 05/21/2025 12:01 PM CDT Body Mass Index 27.02 05/21/2025 12:01 PM CDT Plan of Treatment Health Maintenance Due Date Last Done Comments Breast Cancer Screening-Mammogram 1967 Cervical Cancer Screening 1967 Colon Cancer Screening-Colonoscopy 1967 Depression Screening 1967 Hepatitis C Screening 1967 Hepatitis B Screening 1985 Regular Well Visit/Exam 18-64 1985 Pneumococcal vaccine <65 (1 of 2 - PCV) 1986 Zoster Vaccine (1 of 2) 2017 Influenza Vaccine (#1) 2025 DTaP/Tdap/Td Vaccine (2 - Td or Tdap) 03/05/2028 Insurance [facility] [employer] [facility] [facility] H[employer]/PPO Address: [address] [address] [place] [address] [facility] [employer] [facility] H[facility]/PPO Address: [address] [address] [place] [address] [facility] H[facility]O Address: [address] [address] Care Teams Flour Mixer Relationship Specialty Start Date End Date Corey De La O DO PCP - General Internal Medicine 03/25/25
--- OUTSIDE RECORDS SUMMARY | 2025-08-25 16:23 | XMS_ITS | Clinical Summary ---
Author Organization [facility] Address [address] [place] [address] Care Team Providers Care Microfiche Camera Operator Name Role Phone Antonio Krueger MD Primary Care Provider [phone] Social History Tobacco Use Types Packs/Day Years Used Date Smoking Tobacco: Never Assessed Comments Unknown Sex and Gender Information Value Date Recorded Sex Assigned at Not on file Legal Sex Female 7:48 PM CDT Gender Identity Not on file Sexual Orientation Not on file Last Filed Vital Signs Vital Sign Reading Time Taken Comments Blood Pressure 144/70 07/08/2013 10:14 AM CDT Pulse 76 07/08/2013 10:14 AM CDT Temperature - - Respiratory Rate - - Oxygen Saturation - - Inhaled Oxygen Concentration - - Weight 81.6 kg (180 lb) 07/08/2013 10:14 AM CDT Height 157.5 cm (5' 2) 07/08/2013 10:14 AM CDT Body Mass Index 32.92 07/08/2013 10:14 AM CDT Plan of Treatment Health Maintenance Due Date Last Done Comments Cervical Cancer Screening Pa p Smear (Age 30 to 64) Every 3 Years 1967 Colorectal Cancer Screening Colonoscopy (10 Years) 1967 Annual Physical 1970 Hepatitis C 1985 DTaP, Tdap and Td Vaccines ( 1 - Tdap) 1986 Hepatitis B Vaccines (1 of 3 - 19+ 3-dose series) 1986 Cervical Cancer Screening Pa p with HPV Testing (Age 30 to 64) Every 5 Years 1997 Cervical Cancer Screening with HPV 1997 Mammogram Screening 2007 Pneumococcal Vaccine: 50+ Ye ars (1 of 1 - PCV) 2017 Zoster Vaccines (1 of 2) 2017 COVID-19 Vaccine ( - 2024-2 6 season) 2025 Influenza Adult (#1) 2025 Hepatitis A Vaccines Aged Out No long er eligible based on patient's age to complete this topic Meningococcal B Vaccine Aged Out No l onger eligible based on patient's age to complete this topic Meningococcal Vaccine Aged Out No valarie warren eligible based on patient's age to complete this topic RSV Immunizations Under 20 Months Aged Out No longer eligible based on patient's age to complete this topic Care Teams Microfiche Camera Operator Relationship Specialty Start Date End Date Antonio Krueger MD [address] [place] [address] PCP - General 03/04/13
--- OUTSIDE RECORDS SUMMARY | 2025-08-25 16:23 | XMS_ITS | Encounter Summary ---
Author Organization [facility] Address [address] [facility] [address] [place] [address] Phone Care Team Providers Care Cryptographic Machine Operator Name Role Phone Corey De La O DO Primary Care Provider [phone] Encounter Details Date Type Department Care Team (Late st Contact Info) Description 05/13/2025 Telephone [facility] Medicine Scheduling [facility] [place] [address] Hiwot Marlow Social History Tobacco Use Types Packs/Day Years Used Date Smoking Tobacco: Heavy Smoker Cigarettes Smokeless Tobacco: Never Comments:Smoking History Pac ks/day: 1 Packs Alcohol Use Standard Drinks/Week Comments Yes 0 (1 standard drink = 0.6 oz pur e alcohol) socially Comments No Sex and Gender Information Value Date Recorded Sex Assigned at Not on file Legal Sex Female 12:27 AM REPORTING MANAGER Gender Identity Female 08/13/2018 9:06 AM CDT Sexual Orientation Not on file documented as of this encounter Miscellaneous Notes * Telephone Encounter - Tommie Burnett RN - 08/25/2025 8:19 AM CST Letter sent to [facility] for MRIs RTING MANAGER * Telephone Encounter - Lorna Cagle - 08/19/2025 8:44 AM CDT Radiology reports scanned into chart * Telephone Encounter - Tommie Burnett RN - 06/08/2025 10:53 AM CDT Auth has been received for MRIs, orders faxed back to [facility] stating auth was received * Telephone Encounter - Tamar Keenan - 06/08/2025 8:47 AM CDT PRE CERT order scanned into chart * Telephone Encounter - Che French - 05/14/2025 10:26 AM CDT PT notes scanned into chart * Telephone Encounter - Annamarie Ramos - 05/13/2025 10:11 AM CDT Department of Neurological Surgery at [facility] Spine Intake 05/13/25 Rasta Weber 1965 [id number] Corey De La O, DO Are you a New or Returning Pt? new Referring physician Sandor Paredes Referred to: First Available: Second Opinion: No Insurance: Commercial Insurance: Name of Plan [facility] employees Send Letter to PCP for Insurance Auth: Yes Litigation: the act, process, or practice of settling a dispute in a court of law. Active litigation pertaining to this disease process? No Has the patient had spinal surgery within the last year? No If direct referral, contracted insurance and 4 months post operative - please send to provider poolfor review: Diagnosis: Lumbar radiculopathy Location (Spinal Area): Lumbar Imaging Done within Last Year: Yes List ALL MRI Imaging Location: [facility] FAX Records Requested: In [facility] HT: 5'1 WT: 148 pounds BMI: 28.0 Weakness: Yes Numbness: Yes Spinal Pain: lower back, both leg(s), both hip(s), both knee(s), and both Feet/toes Loss of bowel or bladder control: No Duration of symptoms: -- Spine surgery - within last 10 years: No Physical therapy within last year Yes Location: [facility] FAX Records Requested: Yes Pain Management (Injections) within last year No Do you use any form of Nicotine?: Yes Reason for visit: New Pt Appt Date: 05/21/2025 Time: 11:30am Location: [facility] ([facility]) Provider Dr. Horton Routed: BUSHRA Horton Remind pt to arrive 45 min early for xrays: Yes Patient Informed about possible wait time to be seen by Providers: Yes ???Please expect your total visit time to be approximately 2-4 hours for a new patient visit or surgical consultation. This time will involve x-ray imaging, processing, interpretation, evaluation by Providers team, and consultation with Doctor. Please expect that during this time you may be waitingin between x-rays, evaluation by Provider's team, and consultation with Doctor. This wait time is necessary for a thorough review, analysis, and interpretation of your clinical history, radiological studies, current condition, and formulation of a clinical plan. We ask for your patience and know that while you are waiting, your care is being actively planned?? documented in this encounter Plan of Treatment Not on file documented as of this encounter Visit Diagnoses Not on filedocumented in this encounter Care Teams Cryptographic Machine Operator Relationship Specialty Start Date End Date Corey De La O DO PCP - General Internal Medicine 03/25/25 documented as of this encounter
--- OUTSIDE RECORDS SUMMARY | 2025-08-25 16:23 | XMS_ITS | Encounter Summary ---
Author Organization [facility] Healthcare Address [address] [place] [address] Care Team Providers Care Outside Solar Sales Consultant Name Role Phone Antonio Krueger MD Primary Care Provider [phone] Corey De La O DO Primary Care Provider [phone] Encounter Details Date Type Department Care Team (Latest Contact Info) Description 10/30/2020 Ophth Exam Ophthalmology Arelis Crooks MD [address] [facility] [address] [place] [address] Social History Tobacco Use Types Packs/Day Years Used Date Smoking Tobacco: Heavy Smoker Cigarettes Smokeless Tobacco: Never Comments:Smoking History Pac ks/day: 1 Packs Alcohol Use Standard Drinks/Week Comments Yes 0 (1 standard drink = 0.6 oz pur e alcohol) socially Comments No Sex and Gender Information Value Date Recorded Sex Assigned at Not on file Legal Sex Female 12:27 AM RECOVERY ROOM RN Gender Identity Female 08/13/2018 9:06 AM CDT Sexual Orientation Not on file documented as of this encounter Plan of Treatment Not on file documented as of this encounter Visit Diagnoses Not on filedocumented in this encounter Eye Exam Visual Acuity Right eye Left eye Near sc 20/20 20/200 ph 20/20 Tonometry #1 (Tonopen, 2:32 PM) Right eye Left eye Pressure 18 24 Tonometry #2 (Tonopen, 2:32 PM) Right eye Left eye Pressure 25 Pupils Dark Light Shape React APD Right eye 4 2 Round Brisk None Left eye 4 2 Round Brisk None Visual Peacock Right eye Left eye Full Full Extraocular Movement Right eye Left eye Full, Ortho Full, Ortho Neuro/Psych Oriented x3: Yes Mood/Affect: Normal Dilation Both eyes: 1.0% Mydriacyl, 2 .5% Phenylephrine @ 2:32 PM External Exam Right eye Left eye External Normal Normal Slit Lamp Exam Right eye Left eye Lids/Lashes Normal mild edema, reac tive ptosis, mild erythema Conjunctiva/Sclera White and quiet Tr diffuse in jection Cornea Clear Diffuse SPEE, no epi defect. MCE concentrated centrally and superiorly/temporally,. Central D folds and very small whitish deposits in linear fashion nasally, Edema, Punctate stain, Endothelitis, Diffuse MCE & SPEE no epi defect Anterior Chamber Deep and quiet 1-2+ flare,1+ m ixed cell Iris Round and reactive Round and jacoby ctive Lens Tr NS Tr NS Vitreous Normal Normal Fundus Exam Right eye Left eye Disc Normal Normal Macula Normal Normal Vessels slightly attenuated/tortuated sl ightly tortuous and attenuated Periphery Normal Normal Bscan without vitritis OS Care Teams Outside Solar Sales Consultant Relationship Specialty Start Date End Date Antonio Krueger MD [address] [place] [address] PCP - General 12/18/16 03/24/25 Corey De La O DO [address] [place] [address] PCP - General Internal Medicine 03/25/25 documented as of this encounter
== END 2025-08-25 14:56 | disposition home or self-care (01) ==
PROVIDERS: PCP Internal Medicine; Visit Provider Nurse Practitioner Family
DX: Z12.2 Encounter for screening for malignant neoplasm of respiratory organs (principal); Z87.891 Personal history of nicotine dependence
CPT/HCPCS: 71271

== ENCOUNTER 2025-08-27 07:27 | Emergency (ER) | payer OTHER, SELFPAY ==
--- OUTSIDE RECORDS SUMMARY | 2025-08-26 12:29 | XMS_ITS | Encounter Summary ---
Author Organization [facility] Healthcare Address [address] [place] [address] Care Team Providers Care Storage Wharfage Clerk Name Role Phone Corey De La O DO Primary Care Provider [phone] Reason for Referral * MRI/CAT/PET Scan (Routine) - Closed Specialty Diagnoses / Procedures Referred By Contac t Referred To Contact Procedures Neuro MR Outside Reference Radha Horton MD [address] [address] Phone: tel: fax: Referral ID Status Reason Start Date Expiration Date Visits Re quested Visits Authorized [id number] Closed 08/26/2025 09/25/2026 1 1 R TRUCKER Reason for Visit * MRI/CAT/PET Scan (Routine) - Closed Specialty Diagnoses / Procedures Referred By Contviry t Referred To Contact Procedures Neuro MR Outside Reference Radha Horton MD [address] [address] Phone: tel: fax: Referral ID Status Reason Start Date Expiration Date Visits Re quested Visits Authorized [id number] Closed 08/26/2025 09/25/2026 1 1 Encounter Details Date Type Department Care Team (Latest Contact Info) Description 08/26/2025 12:29 PM SUGAR TRUCKER - 08/26/2025 11:59 PM SUGAR TRUCKER Hospital Encounter [facility] [address] [place] [address] Arrived Discharge Disposition: Discharge to home or self care Social History Tobacco Use Types Packs/Day Years Used Date Smoking Tobacco: Heavy Smoker Cigarettes Smokeless Tobacco: Never Comments:Smoking History Pac ks/day: 1 Packs Alcohol Use Standard Drinks/Week Comments Yes 0 (1 standard drink = 0.6 oz pur e alcohol) socially Comments No Sex and Gender Information Value Date Recorded Sex Assigned at Not on file Legal Sex Female 12:27 AM SUGAR TRUCKER Gender Identity Female 08/13/2018 9:06 AM CDT Sexual Orientation Not on file documented as of this encounter Medications at Time of Discharge aspirin 325 mg tablet take 1 tablet (325MG) by oral route every day 0 05/10/2012 atenolol (TENORMIN) 100 mg tablet take 1 tablet (100MG) by oral route every day 0 05/10/2012 b complex vitamins (B-100 COMPLEX) tablet take 1 by Oral route once 0 0 12/17/2015 gemfibroziL (LOPID) 600 mg tablet 02/12/2024 hydroCHLOROthiazi de (MICROZIDE) 12.5 mg capsule Take 1 capsule (12.5 mg total) by mouth daily 5 09/01/2018 irbesartan (AVAPRO) 150 mg tablet TK 1 T PO QD 5 08/05/2018 metFORMIN XR (GLUCOPHAGE XR) 500 mg 24 hr tablet TK 1 T PO QD 5 08/05/2018 POTASSIUM CHLORIDE ER 20 mEq CR tablet TK 1 T PO QD 5 08/05/2018 sertraline (ZOLOFT) 25 mg tablet TK 1 T PO Q DAY 4 08/05/2018 Trelegy Ellipta 100-62.5-25 mcg inhaler 1 puff daily 04/27/2024 documented as of this encounter Discharge Disposition Disposition Code Departure Means Destination Discharge to home or self care documented in this encounter Plan of Treatment Not on file documented as of this encounter Procedures Procedure Name Priority Date/Time Associated Diagnosis Comments NEURO MR OUTSIDE REFERENCE Routine 08/26/2025 12:29 PM SUGAR TRUCKER documented in this encounter Results * Neuro MR Outside Reference (08/26/2025 12:29 PM SUGAR TRUCKER) Impressions [facility] - 08/26/2025 12:29 PM SUGAR TRUCKER These images are for Reference purposes only and have not been reviewed by [facility] Radiology. There will be no report generated by a [facility] Radiologist. Narrative [facility] - 08/26/2025 12:29 PM SUGAR TRUCKER EXAMINATION: Images For Reference Purposes Only us Radha Horton MD IMG MRI PROCEDURES Final Resu lt [facility] documented in this encounter Visit Diagnoses Not on filedocumented in this encounter Care Teams Storage Wharfage Clerk Relationship Specialty Start Date End Date Corey DeL a O DO PCP - General Internal Medicine 03/25/25 documented as of this encounter
--- OUTSIDE RECORDS SUMMARY | 2025-08-26 12:29 | XMS_ITS | Encounter Summary ---
Author Organization [facility] Healthcare Address [address] [place] [address] Care Team Providers Care Oim Architect Name Role Phone Corey De La O DO Primary Care Provider [phone] Reason for Referral * MRI/CAT/PET Scan (Routine) - Closed Specialty Diagnoses / Procedures Referred By Contac t Referred To Contact Procedures Neuro MR Outside Reference Radha Horton MD [address] [address] Phone: tel: fax: Referral ID Status Reason Start Date Expiration Date Visits Re quested Visits Authorized [id number] Closed 08/26/2025 09/25/2026 1 1 STOCK MAKER Reason for Visit * MRI/CAT/PET Scan (Routine) - Closed Specialty Diagnoses / Procedures Referred By Contviry t Referred To Contact Procedures Neuro MR Outside Reference Radha Horton MD [address] [address] Phone: tel: fax: Referral ID Status Reason Start Date Expiration Date Visits Re quested Visits Authorized [id number] Closed 08/26/2025 09/25/2026 1 1 Encounter Details Date Type Department Care Team (Latest Contact Info) Description 08/26/2025 12:29 PM GUN STOCK MAKER - 08/26/2025 11:59 PM GUN STOCK MAKER Hospital Encounter [facility] [address] [place] [address] Arrived Discharge Disposition: Discharge to home or [...] on file Legal Sex Female 12:27 AM GUN STOCK MAKER Gender Identity Female 08/13/2018 9:06 AM CDT [...] MR OUTSIDE REFERENCE Routine 08/26/2025 12:29 PM GUN STOCK MAKER documented in this encounter Results * Neuro MR Outside Reference (08/26/2025 12:29 PM GUN STOCK MAKER) Impressions [facility] - 08/26/2025 12:29 PM GUN STOCK MAKER These images are for Reference purposes only and have not been reviewed by [facility] Radiology. There will be no report generated by a [facility] Radiologist. Narrative [facility] - 08/26/2025 12:29 PM GUN STOCK MAKER EXAMINATION: Images For Reference Purposes Only us Radha Horton MD IMG MRI PROCEDURES Final Resu lt [facility] documented in this encounter Visit Diagnoses Not on filedocumented in this encounter Care Teams Oim Architect Relationship Specialty Start Date End Date Corey De La O DO PCP - General Internal Medicine 03/25/25 documented as of this encounter
--- OUTSIDE RECORDS SUMMARY | 2025-08-26 12:31 | XMS_ITS | Encounter Summary ---
Author Organization [facility] Healthcare Address [address] [place] [address] Care Team Providers Care Coreroom Foundry Laborer Name Role Phone Corey De La O DO Primary Care Provider [phone] Reason for Referral * MRI/CAT/PET Scan (Routine) - Closed Specialty Diagnoses / Procedures Referred By Contac t Referred To Contact Procedures Neuro MR Outside Reference Radha Horton MD [address] [address] Phone: tel: fax: Referral ID Status Reason Start Date Expiration Date Visits Re quested Visits Authorized [id number] Closed 08/26/2025 09/25/2026 1 1 TARY EQUIPMENT SPECIALIST Reason for Visit * MRI/CAT/PET Scan (Routine) - Closed Specialty Diagnoses / Procedures Referred By Shyla t Referred To Contact Procedures Neuro MR Outside Reference Radha Horton MD [address] [address] Phone: tel: fax: Referral ID Status Reason Start Date Expiration Date Visits Re quested Visits Authorized [id number] Closed 08/26/2025 09/25/2026 1 1 Encounter Details Date Type Department Care Team (Latest Contact Info) Description 08/26/2025 12:31 PM MILITARY EQUIPMENT SPECIALIST - 08/26/2025 11:59 PM MILITARY EQUIPMENT SPECIALIST Hospital Encounter [facility]) [address] [place] [address] Arrived Discharge Disposition: Discharge to home or [...] on file Legal Sex Female 12:27 AM MILITARY EQUIPMENT SPECIALIST Gender Identity Female 08/13/2018 9:06 AM CDT [...] Comments NEURO MR OUTSIDE REFERENCE Routine 08/26/2025 12:31 PM MILITARY EQUIPMENT SPECIALIST documented in this encounter Results * Neuro MR Outside Reference (08/26/2025 12:31 PM MILITARY EQUIPMENT SPECIALIST) Impressions [facility] - 08/26/2025 12:31 PM MILITARY EQUIPMENT SPECIALIST These images are for Reference purposes only and have not been reviewed by [facility] Radiology. There will be no report generated by a [facility] Radiologist. Narrative [facility] - 08/26/2025 12:31 PM MILITARY EQUIPMENT SPECIALIST EXAMINATION: Images For Reference Purposes Only us Radha Horton MD IMG MRI PROCEDURES Final Resu lt [facility] documented in this encounter Visit Diagnoses Not on filedocumented in this encounter Care Teams Coreroom Foundry Laborer Relationship Specialty Start Date End Date Corey De La O DO PCP - General Internal Medicine 03/25/25 documented as of this encounter
--- OUTSIDE RECORDS SUMMARY | 2025-08-26 12:31 | XMS_ITS | Encounter Summary ---
Author Organization [facility] Healthcare Address [address] [place] [address] Care Team Providers Care Game Advisor Name Role Phone Corey De La O DO Primary Care Provider [phone] Reason for Referral * MRI/CAT/PET Scan (Routine) - Closed Specialty Diagnoses / Procedures Referred By Contac t Referred To Contact Procedures Neuro MR Outside Reference Radha Horton MD [address] [address] Phone: tel: fax: Referral ID Status Reason Start Date Expiration Date Visits Re quested Visits Authorized [id number] Closed 08/26/2025 09/25/2026 1 1 R CARE TECHNICIAN Reason for Visit * MRI/CAT/PET Scan (Routine) - Closed Specialty Diagnoses / Procedures Referred By Shyla t Referred To Contact Procedures Neuro MR Outside Reference Radha Horton MD [address] [address] Phone: tel: fax: Referral ID Status Reason Start Date Expiration Date Visits Re quested Visits Authorized [id number] Closed 08/26/2025 09/25/2026 1 1 Encounter Details Date Type Department Care Team (Latest Contact Info) Description 08/26/2025 12:31 PM FLOOR CARE TECHNICIAN - 08/26/2025 11:59 PM FLOOR CARE TECHNICIAN Hospital Encounter [facility]) [address] [place] [address] Arrived Discharge Disposition: Discharge to home or [...] on file Legal Sex Female 12:27 AM FLOOR CARE TECHNICIAN Gender Identity Female 08/13/2018 9:06 AM [...] MR OUTSIDE REFERENCE Routine 08/26/2025 12:31 PM FLOOR CARE TECHNICIAN documented in this encounter Results * Neuro MR Outside Reference (08/26/2025 12:31 PM FLOOR CARE TECHNICIAN) Impressions [facility] - 08/26/2025 12:31 PM FLOOR CARE TECHNICIAN These images are for Reference purposes only and have not been reviewed by [facility] Radiology. There will be no report generated by a [facility] Radiologist. Narrative [facility] - 08/26/2025 12:31 PM FLOOR CARE TECHNICIAN EXAMINATION: Images For Reference Purposes Only us Radha Horton MD IMG MRI PROCEDURES Final Resu lt [facility] documented in this encounter Visit Diagnoses Not on filedocumented in this encounter Care Teams Game Advisor Relationship Specialty Start Date End Date Corey De La O DO PCP - General Internal Medicine 03/25/25 documented as of this encounter
--- NOTE | ~2025-08-27 | XR_ITS ---
EXAMINATION: XR ankle LT min 3V, 08/27/2025 9:50 LPN RN HISTORY: r/o synodesis injury given proximal fib fx COMPARISON: No comparisons available. Findings: No acute fracture or malalignment. No significant degenerative changes. Soft tissues unremarkable. Impression: No acute fracture or malalignment. Reviewed, dictated and finalized at location P. RN Impression: No acute fracture or malalignment.
--- NOTE | ~2025-08-27 | XR_ITS ---
EXAMINATION: XR knee LT min 4V, 08/27/2025 8:10 [employer]ERSON [employer] HISTORY: FALL, L KNEE PAIN COMPARISON: No comparisons available. Findings: Slightly displaced fracture of the proximal fibula No significant degenerative changes. Soft tissues unremarkable. Impression: Fracture detailed above Reviewed, dictated and finalized at location P. [employer] Impression: Fracture detailed above
[2025-08-27 07:32] VITALS: BP 163/75; PULSE 77; RESP 18; TEMP 36.3; O2SAT 97
--- NOTE | 2025-08-27 09:16 | ED.LOWEXIN ---
HPI - Extremity Injury (Lower) General Chief Complaint: Extremity Injury, Lower Stated Complaint: left knee injury Time Seen by Provider: 08/27/25 08:35 Source: patient Limitations: no limitations History of Present Illness HPI Narrative: Patient presents with report of left knee injury / pain after sustaining a GLF last night. She reports that she lost her balance. has a history of drop foot for which she uses a walker at baseline. She didn't really notice any pain until this morning when she felt pain along the medial aspect of her left knee joint. Took four 200mg tablets of ibuprofen at home at 0600 with some relief. Not on anticoagulation but is on aspirin. Denies foot or ankle pain. No paresthesias. COnfirmed preferred pharmacy. Related Data Home Medications ?Medication ?Instructions ?Recorded ?Confirmed ?Last Taken ?Type melatonin 5 mg capsule 5 mg PO HS PRN sleeplessness 10/28/19 08/07/25 03/05/22 History milk thistle 150 mg capsule 150 mg PO DAILY 10/28/19 08/07/25 07/26/23 History aspirin 325 mg tablet 325 mg PO DAILY 04/26/20 08/07/25 07/26/23 History cholecalciferol (vitamin D3) 50 50 mcg PO DAILY 04/26/20 08/07/25 07/26/23 History mcg (2,000 unit) capsule vitamin B complex 1 cap PO DAILY 04/26/20 08/07/25 07/26/23 History Allergies Allergy/AdvReac Type Severity Reaction Status Date / Time No Known Allergies Allergy Verified 08/27/25 07:35 [facility] Past Medical History Medical History BMI 27.0-27.9,adult BMI 26.0-26.9,adult Unspecified abdominal pain Other dorsalgia Left lower quadrant pain Hyperglycemia Foot pain, left Fatty liver Dietary counseling and surveillance (11/10/16) Allergic rhinitis, unspecified Acute sinusitis treated with antibiotics in the past 60 days Aortic regurgitation History of aortic valve stenosis (normal spontaneous vaginal delivery) X2 Anxiety Foot drop Essential (primary) hypertension Obstructive sleep apnea (adult) (pediatric) Other hyperlipidemia Type 2 diabetes mellitus Surgical History Surgical History History of dental surgery History of hysteroscopy January 2022 Previous back surgery Family History Family History Mother Hypertension Father Family history of diabetes mellitus in first degree relative Sibling Hemochromatosis Social History Social History (Updated 08/30/25 @ 18:56 by Bing Little MD) Social History: Ambulates with walker due to drop foot Smoking packs per day: 1 Smoking cigarettes per day: 20.0 Years smoked: 40 Smoking pack-years: 40.00 Tobacco type: cigarettes Second hand tobacco smoke exposure: Yes Alcohol intake: current Drinks per week: 5 Alcohol use details: social Substance use: current Substance use type: marijuana Other substance usage details: EDIBLES- DAILY FOR SLEEP Do You Feel Safe in your Home?: Yes Lack of Transportation: No Lack of Food: Never True Current Housing: I Have Housing Concerned About Future Housing: No Difficulty Paying Gas/Electric Bills: No Difficulty Paying for Meds: No Currently Unemployed: No Education: Trade/Vocational Certificate Difficulty w/ Childcare or Family Care: No Living arrangements: with family Occupation/Education: occupation 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 Spiritual care concerns: No Exam Narrative: GENERAL: Well-appearing, well-nourished, and in no acute distress. HEAD: Normocephalic, atraumatic. EYES: Non injected, non icteric ENT: Nares clear, no rhinorrhea or epistaxis. Gross auditory acuity intact. NECK: Supple. No meningismus. CHEST: Speaking in full sentences. No respiratory distress. HEART: Regular rate and rhythm. . ABDOMEN: Soft, nondistended. No rigidity or guarding. Not peritoneal EXTREMITIES: Normal range of motion. No lower extremity edema. Swelling of they left knee with some ecchymosis. Mild tenderness to palpation over the proximal fibula. Patient able to flex and extend the knee. Sensation intact throughout left lower extremity although skin is cool where ice had been applied. SKIN: Warm, dry, no rash. NEURO: No focal deficits. Alert and oriented. Answering questions. Following commands. Normal speech without aphasia or dysarthria. PSYCH: Normal mood and affect. Course Vital Signs Vital signs: Vital Signs Temperature 97.3 F L 08/27/25 07:32 Pulse Rate 77 08/27/25 07:32 Respiratory Rate 18 08/27/25 07:32 Blood Pressure 163/75 H 08/27/25 07:32 Pulse Oximetry 97 08/27/25 07:32 Oxygen Delivery Room Air 08/27/25 07:32 Temperature 97.3 F L 08/27/25 07:32 Pulse Rate 89 08/27/25 12:58 Respiratory Rate 19 08/27/25 12:58 Blood Pressure 142/87 H 08/27/25 12:58 Pulse Oximetry 98 08/27/25 12:58 Oxygen Delivery Room Air 08/27/25 07:32 MDM - Extremity Injury (Lower) MDM Narrative Medical decision making narrative: Patient presents with left knee pain/injury after an accidentaly ground level fall last night. Reports losing her balance. History of drop foot for which she uses a walker. Actually reports that she didn't really experience pain until this morning and her pain is actuallly located around her medial aspect of the left knee despite plain film findings as below. In the emergency department she is afebrile vital signs notable for hypertension. Called ux information architect orthopedic surgeon Dr Monteiro to discuss case; recommends obtaining L ankle plain film. No need for CT imaging of knee. Given her history of drop foot and ambulation with walker at baseline, recommends short leg splint with post op boot to help offload weight so patient can be weight bearing as tolerated. Discussed narcotic/opiate pain medication for breakthrough pain. Discussed risks and benefits as well as alternatives and safe use and disposal. Patient evaluated after splint has been applied as well as the postop shoe. The post op shoe fits somewhat strangely given the configuration, but I explained the rationale to the patient. Her walker is in the car already. Her toes are cool to the touch but the splint does not otherwise appear to tight as she is able to move her toes and the capillary refill remains brisk. She notes that Dr. Monteiro's clinic has already called to schedule a follow up appointment. Differential Diagnosis Differential diagnosis: Likely ankle sprain and strain, acute internal derangement of knee, fracture of femur, ankle fracture and other (tibial/fibula fracture) Imaging Data Attestation: I personally reviewed and interpreted this imaging study as follows: My impression: Obvious proximal fibula fracture Radiologist's impression: Impression: No acute fracture or malalignment. Impressions Knee X-Ray 08/27/25 08:26 Impression: Fracture detailed above Findings: Slightly displaced fracture of the proximal fibula No significant degenerative changes. Soft tissues unremarkable. Discharge Plan Discharge Clinical Impression: Fall, Fracture of left proximal fibula Patient Disposition: Home Condition: Stable Instructions: Antibiotic Form, Leg Fracture (ED), Narcotic Safety (ED), Splint Care (ED), Fall Prevention (ED), Post Surgical Shoe (ED) Additional Instructions: You will keep the splint on in place with the postop shoe which can help with your foot position. You will continue to use her walker to ambulate and can be weight-bearing as tolerated on this leg. Follow-up with the orthopedic surgeon listed below who was already notified about your case. Call the clinic today to see when follow up appointment should be made. Acetaminophen/Tylenol (maximum 4000 mg per day) is safe to take with NSAIDs (ibuprofen/Motrin) for pain relief. For breakthrough pain, short course of opiate/narcotic medications has been prescribed. Return to the emergency department any new or worsening symptoms. Patient Language: Tamazight Prescriptions: New ibuprofen 600 mg tablet 600 mg PO TID PRN (Reason: pain) Qty: 30 0RF acetaminophen 500 mg capsule 1,000 mg PO Q6H PRN (Reason: pain) Qty: 30 0RF oxycodone 5 mg tablet 5 mg PO Q8H PRN (Reason: pain) Qty: 14 0RF No Action melatonin 5 mg capsule 5 mg PO HS PRN (Reason: sleeplessness) milk thistle 150 mg capsule 150 mg PO DAILY aspirin 325 mg tablet 325 mg PO DAILY cholecalciferol (vitamin D3) 50 mcg (2,000 unit) capsule 50 mcg PO DAILY vitamin B complex Capsule 1 cap PO DAILY albuterol sulfate 90 mcg/actuation HFA aerosol inhaler 2 puff inhalation QID PRN (Reason: shortness of breath or wheezing) Qty: 8.5 3RF atenolol 100 mg tablet 100 mg PO DAILY Qty: 90 2RF hydrochlorothiazide 12.5 mg capsule 12.5 mg PO DAILY Qty: 90 2RF potassium chloride 20 mEq tablet extended release 20 meq PO DAILY Qty: 90 2RF Trelegy Ellipta 100-62.5-25 mcg blister with device See Rx Instructions .ROUTE .COMPLEX Qty: 60 5RF Dose Instruction: INHALE 1 PUFF BY MOUTH DAILY Rx Instructions: INHALE 1 PUFF BY MOUTH DAILY irbesartan 150 mg tablet 150 mg PO DAILY Qty: 90 2RF sertraline 50 mg tablet 50 mg PO DAILY Qty: 90 2RF gemfibrozil 600 mg tablet 600 mg PO BID Qty: 180 2RF Follow-up/Referrals: Corey De La O DO [Primary Care Provider, Internal Medicine] Clint Monteiro MD [Physician, Orthopedics] Stand Alone Forms: Work/School Release IP Time of Disposition: 12:07
[2025-08-27] MEDS: HYDROcodone/acetaminophen (*CRX) 5-325 MG TABLET 1 TAB PO (09:31)
--- NOTE | 2025-08-27 10:00 | PC.NURSE ---
MD verbalized to hold off on applying post op shoe until imaging is completed and further splinting is ordered and applied.
[2025-08-27] MEDS: KETOROLAC 30 MG/ML VIAL (*BKC) 15 MG IM (12:45)
[2025-08-27 12:58] VITALS: BP 142/87; PULSE 89; RESP 19; O2SAT 98
--- OUTSIDE RECORDS SUMMARY | 2025-08-27 16:27 | XMS_ITS | Clinical Summary ---
Author Organization [facility] Address [address] [place] [address] Care Team Providers Care Electrical Apprentice Name Role Phone Corey De La O DO Primary Care Provider [phone] Allergies No known active allergies Medications aspirin [...] 11/02/2020 Assessment & Plan (11/03/2020 8:26 AM BUTTONER): Seen in [facility] ED 10/30/20 with sudden onset blurry vision [...] apnea) Foot-drop 07/21/2015 Hypertension 11/24/2011 Lumbago 11/24/2011 Encounters Date Type Department Care Team Description 08/26/2025 12:31 PM BUTTONER - 08/26/2025 11:59 PM BUTTONER Hospital Encounter [facility]) [address] [place] [address] Arrived Discharge Disposition: Discharge to home or self care 08/26/2025 12:29 PM BUTTONER - 08/26/2025 11:59 PM BUTTONER Hospital Encounter [facility] ([facility]) [address] [place] [address] Arrived Discharge Disposition: Discharge to home or self care from Last 3 Months Surgical History Surgery Date Site/Laterality Comments LAMINECTOMY Medical History Medical History Date Comments Hx Other Medical you; Comments: ELU 12/17/2015 - Hx Other Medical obesity; Commen ts: [facility] 12/17/2015 - Hx Other Medical Back surgery an d chronic pain; Comments: U 12/17/2015 - Diabetes mellitus Gastric reflux Gout [...] on file Legal Sex Female 12:27 AM BUTTONER Gender Identity Female 08/13/2018 9:06 AM CDT Sexual Orientation Not on file Last Filed Vital Signs Vital Sign Reading Time Taken Comments Blood Pressure 163/83 04/02/2025 12:57 PM CDT Pulse 87 04/02/2025 12:57 PM CDT Temperature 36.3 C (97.3 F) 04/02/2025 12:57 PM CDT Respiratory Rate 16 10/30/2020 5:24 PM BUTTONER Oxygen Saturation 97% 04/02/2025 12:57 PM CDT [...] Vaccine (2 - Td or Tdap) 03/05/2028 Procedures Procedure Name Priority Date/Time Associated Diagnosis Comments NEURO MR OUTSIDE REFERENCE Routine 08/26/2025 12:31 PM BUTTONER NEURO MR OUTSIDE REFERENCE Routine 08/26/2025 12:29 PM BUTTONER from Last 3 Months Results * Neuro MR Outside Reference (08/26/2025 12:31 PM BUTTONER) Impressions [facility] - 08/26/2025 12:31 PM BUTTONER These images are for Reference purposes only and have not been reviewed by [facility] Radiology. There will be no report generated by a [facility] Radiologist. Narrative [facility] - 08/26/2025 12:31 PM BUTTONER EXAMINATION: Images For Reference Purposes Only us Radha Horton MD IMG MRI PROCEDURES Final Resu lt [facility] * Neuro MR Outside Reference (08/26/2025 12:29 PM BUTTONER) Impressions [facility] - 08/26/2025 12:29 PM BUTTONER These images are for Reference purposes only and have not been reviewed by [facility] Radiology. There will be no report generated by a [facility] Radiologist. Narrative [facility] - 08/26/2025 12:29 PM BUTTONER EXAMINATION: Images For Reference Purposes Only us Radha Horton MD IMG MRI PROCEDURES Final Resu lt [facility] from Last 3 Months Insurance [facility] Address: [address] [address] [place] [address] [facility] CHOICE PL[employer] [facility] [employer] Address: [address] [address] [place] [address] * Guarantor: Rasta Weber Account Type Relation to Patient Date of Phone Billing Address Personal/Family Self 1965 [address] [place] [address] [employer] [facility] [facility] [employer] Address: [address] [address] Care Teams Electrical Apprentice Relationship Specialty Start Date End Date Corey De La O DO PCP - General Internal Medicine 03/25/25
--- OUTSIDE RECORDS SUMMARY | 2025-08-27 16:27 | XMS_ITS | Encounter Summary ---
Author Organization [facility] Healthcare Address [address] [place] [address] Care Team Providers Care Bus Company Manager Name Role Phone Antonio Krueger MD Primary Care Provider [phone] Corey De La O DO Primary Care Provider [phone] Encounter Details Date Type Department Care Team (Latest Contact Info) Description 10/30/2020 Ophth Exam Ophthalmology Arelis Crooks MD [address] [place] [address] Social History Tobacco Use Types Packs/Day Years Used Date Smoking Tobacco: Heavy Smoker Cigarettes Smokeless Tobacco: Never Comments:Smoking History Pac ks/day: 1 Packs Alcohol Use Standard Drinks/Week Comments Yes 0 (1 standard drink = 0.6 oz pur e alcohol) socially Comments No Sex and Gender Information Value Date Recorded Sex Assigned at Not on file Legal Sex Female 12:27 AM THERAPEUTIC SPECIALIST Gender Identity Female 08/13/2018 9:06 AM CDT Sexual Orientation Not on file documented as of this encounter Functional Status * Fall Risk Assessment Tool - MEDFRAT Question Answer Date of Assessment Author History of falling in last 3 months, including since admission 1 10/30/2020 12:55 PM Elda Leroy RN Confusion or disorientation 0 10/30/2020 12 :55 PM Elda Leroy RN Intoxicated or sedated 0 10/30/2020 12:55 P M Elda Leroy RN Impaired gait 0 10/30/2020 12:55 PM Elda Michael RN Mobility assist device used 0 10/30/2020 12 :55 PM Elda Leroy RN Altered elimination 0 10/30/2020 12:55 PM C Elda Taylor RN Fall risk score: (1-2 low risk), (3-4 moderate risk), (5 or more high risk) 1 10/30/2020 12:55 PM Elda Leroy RN documented as of this encounter Plan of [...] Normal Bscan without vitritis OS Care Teams Bus Company Manager Relationship Specialty Start Date End Date Antonio Krueger MD [address] [place] [address] PCP - General 12/18/16 03/24/25 Corey De La O DO [address] [place] [address] PCP - General Internal Medicine 03/25/25 documented as of this encounter
--- OUTSIDE RECORDS SUMMARY | 2025-08-27 16:27 | XMS_ITS | Clinical Summary ---
Author Organization [facility] Address [address] [place] [address] Care Team Providers Care Manager Of Sustainability Name Role Phone Antonio Krueger MD Primary Care Provider [phone] Social History Tobacco Use Types Packs/Day Years [...] age to complete this topic Care Teams Manager Of Sustainability Relationship Specialty Start Date End Date Antonio Krueger MD [address] [place] [address] PCP - General 03/04/13
--- OUTSIDE RECORDS SUMMARY | 2025-08-27 16:27 | XMS_ITS | Encounter Summary ---
Author Organization [facility] Address [address] [facility] [address] [place] [address] Phone Care Team Providers Care It Manager Name Role Phone Corey De La O DO Primary Care Provider [phone] Encounter Details Date Type Department Care Team (Late st Contact Info) Description 05/13/2025 Telephone [facility] Medicine Scheduling [facility] [place], [place] [id number] Hiwot Marlow Social History Tobacco Use Types Packs/Day Years Used Date Smoking Tobacco: Heavy Smoker Cigarettes Smokeless Tobacco: Never Comments:Smoking History Pac ks/day: 1 Packs Alcohol Use Standard Drinks/Week Comments Yes 0 (1 standard drink = 0.6 oz pur e alcohol) socially Comments No Sex and Gender Information Value Date Recorded Sex Assigned at Not on file Legal Sex Female 12:27 AM CLOTH HANDLER Gender Identity Female 08/13/2018 9:06 AM CDT Sexual Orientation Not on file documented as of this encounter Miscellaneous Notes * Telephone Encounter - Che French - 08/26/2025 11:35 AM CST Radiology report scanned into chart H HANDLER * Telephone Encounter - Tommie Burnett RN - 08/25/2025 8:19 AM CST Letter sent to [facility] for MRIs H HANDLER * Telephone Encounter - Lorna Cagle - 08/19/2025 8:44 AM CDT Radiology reports scanned into chart * Telephone Encounter - Tommie Burnett RN - 06/08/2025 10:53 AM CDT Auth has been received for MRIs, orders faxed back to [facility] stating auth was received * Telephone Encounter - Tamar Keenan - 06/08/2025 8:47 AM CDT PRE CERT order scanned into chart * Telephone Encounter - Che French - 05/14/2025 10:26 AM CDT PT notes scanned into chart * Telephone Encounter - Annamarie Ramos - 05/13/2025 10:11 AM CDT Department of Neurological Surgery at [facility] Spine Intake 05/13/25 Rasta Weber 1965 [id number] Corey De La O, DO Are you a New or Returning Pt? new Referring physician Sandor Paredes Referred to: First Available: Second Opinion: No Insurance: Commercial Insurance: Name of Plan [facility] [employer] employees Send Letter to PCP for Insurance Auth: Yes Litigation: the act, process, or practice of settling a dispute in a court of law. Active litigation pertaining to this disease process? No Has the patient had spinal surgery within the last year? No If direct referral, contracted insurance and 4 months post operative - please send to provider acrafor review: Diagnosis: Lumbar radiculopathy Location (Spinal Area): Lumbar Imaging Done within Last Year: Yes List ALL MRI Imaging Location: [facility] FAX Records Requested: In [facility] HT: 5'1 WT: 148 pounds BMI: 28.0 Weakness: Yes Numbness: Yes Spinal Pain: lower back, both leg(s), both hip(s), both knee(s), and both Feet/toes Loss of bowel or bladder control: No Duration of symptoms: -- Spine surgery - within last 10 years: No Physical therapy within last year Yes Location: [place] [facility] FAX Records Requested: Yes Pain Management (Injections) within last year No Do you use any form of Nicotine?: Yes Reason for visit: New Pt Appt Date: 05/21/2025 Time: 11:30am Location: [facility] ([facility]) Provider Dr. Horton Routed: BUSHRA Horton Remind [...] on filedocumented in this encounter Care Teams It Manager Relationship Specialty Start Date End Date Corey De La O DO PCP - General Internal Medicine 03/25/25 documented as of this encounter
--- OUTSIDE RECORDS SUMMARY | 2025-08-27 17:35 | XMS_ITS | Clinical Summary ---
Author Organization [facility] Address [address] [place] [address] Care Team Providers Care Machine Compositor Name Role Phone Corey De La O DO Primary Care Provider [phone] Allergies No known active allergies Medications aspirin [...] 11/02/2020 Assessment & Plan (11/03/2020 8:26 AM TRAM DRIVER): Seen in [facility] 10/30/20 with sudden onset blurry [...] Department Care Team Description 08/26/2025 12:31 PM TRAM DRIVER - 08/26/2025 11:59 PM TRAM DRIVER Hospital Encounter [facility] [address] [place] [address] Arrived Discharge Disposition: Discharge to home or self care 08/26/2025 12:29 PM TRAM DRIVER - 08/26/2025 11:59 PM TRAM DRIVER Hospital Encounter [facility] ([facility]) [address] [place] [address] Arrived Discharge Disposition: Discharge to home or self care from Last 3 Months Surgical History Surgery Date Site/Laterality Comments LAMINECTOMY Medical History Medical History Date Comments Hx Other Medical you; Comments: [facility] 12/17/2015 - Hx Other Medical obesity; Commen ts: [facility] 12/17/2015 - Hx Other Medical Back [...] on file Legal Sex Female 12:27 AM TRAM DRIVER Gender Identity Female 08/13/2018 9:06 AM CDT Sexual Orientation Not on file Last Filed Vital Signs Vital Sign Reading Time Taken Comments Blood Pressure 163/83 04/02/2025 12:57 PM CDT Pulse 87 04/02/2025 12:57 PM CDT Temperature 36.3 C (97.3 F) 04/02/2025 12:57 PM CDT Respiratory Rate 16 10/30/2020 5:24 PM TRAM DRIVER Oxygen Saturation 97% 04/02/2025 12:57 PM CDT [...] MR OUTSIDE REFERENCE Routine 08/26/2025 12:31 PM TRAM DRIVER NEURO MR OUTSIDE REFERENCE Routine 08/26/2025 12:29 PM TRAM DRIVER from Last 3 Months Results * Neuro MR Outside Reference (08/26/2025 12:31 PM TRAM DRIVER) Impressions [facility] - 08/26/2025 12:31 PM TRAM DRIVER These images are for Reference purposes only and have not been reviewed by [facility] Radiology. There will be no report generated by a [facility] Radiologist. Narrative [facility] - 08/26/2025 12:31 PM TRAM DRIVER EXAMINATION: Images For Reference Purposes Only us Radha Horton MD IMG MRI PROCEDURES Final Resu lt [facility] * Neuro MR Outside Reference (08/26/2025 12:29 PM TRAM DRIVER) Impressions [facility] - 08/26/2025 12:29 PM TRAM DRIVER These images are for Reference purposes only and have not been reviewed by [facility] Radiology. There will be no report generated by a [facility] Radiologist. Narrative [facility] - 08/26/2025 12:29 PM TRAM DRIVER EXAMINATION: Images For Reference Purposes Only us Radha Horton MD IMG MRI PROCEDURES Final Resu lt [facility] from Last 3 Months Insurance [facility] CHOICE PLUS [employer] Care Teams Machine Compositor Relationship Specialty Start Date End Date Corey De La O DO PCP - General Internal Medicine 03/25/25
--- OUTSIDE RECORDS SUMMARY | 2025-08-27 17:35 | XMS_ITS | Clinical Summary ---
Author Organization [facility] Address [address] [place] [address] Care Team Providers Care Systems Programmer Name Role Phone Antonio Krueger MD Primary Care Provider [phone] Social History Tobacco Use Types Packs/Day Years [...] age to complete this topic Care Teams Systems Programmer Relationship Specialty Start Date End Date Antonio Krueger MD [address] [place] [address] PCP - General 03/04/13
--- OUTSIDE RECORDS SUMMARY | 2025-08-27 17:35 | XMS_ITS | Encounter Summary ---
Author Organization [facility] Address [address] [place] [address] Care Team Providers Care Billing Analyst Name Role Phone Antoino Krueger MD Primary Care Provider [phone] Corey De La O DO Primary Care Provider [phone] Encounter Details Date Type Department Care Team (Latest Contact Info) Description 10/30/2020 Ophth Exam Ophthalmology Arelis Crooks MD [address] [place] [address] Social History Tobacco Use Types Packs/Day Years Used Date Smoking Tobacco: Heavy Smoker Cigarettes Smokeless Tobacco: Never Comments:Smoking History Pac ks/day: 1 Packs Alcohol Use Standard Drinks/Week Comments Yes 0 (1 standard drink = 0.6 oz pur e alcohol) socially Comments No Sex and Gender Information Value Date Recorded Sex Assigned at Not on file 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
--- OUTSIDE RECORDS SUMMARY | 2025-08-27 17:36 | XMS_ITS | Encounter Summary ---
Author Organization [facility] Address [address] [facility] [address] [place] [address] Phone Care Team Providers Care Flat Ironer Name Role Phone Corey De La O DO Primary Care Provider [phone] Encounter Details Date Type Department Care Team (Late st Contact Info) Description 05/13/2025 Telephone [facility] Medicine Scheduling [facility] [place], [place] [id number] Hiwot Marlow Social History Tobacco Use Types Packs/Day Years Used Date Smoking Tobacco: Heavy Smoker Cigarettes Smokeless Tobacco: Never Comments:Smoking History Pac ks/day: 1 Packs Alcohol Use Standard Drinks/Week Comments Yes 0 (1 standard drink = 0.6 oz pur e alcohol) socially Comments No Sex and Gender Information Value Date Recorded Sex Assigned at Not on file 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 Gender Identity Female 08/13/2018 9:06 AM CDT Sexual Orientation Not on file documented as of this encounter Miscellaneous Notes * Telephone Encounter - Che French - 08/26/2025 11:35 AM CST Radiology report scanned into chart NHOUSE OR NURSERY TRANSPLANTER * Telephone Encounter - Tommie Burnett RN - 08/25/2025 8:19 AM CST Letter sent to [facility] for MRIs NHOUSE OR NURSERY TRANSPLANTER * Telephone Encounter - Lorna Cagle - 08/19/2025 8:44 AM CDT Radiology reports scanned into chart * Telephone Encounter - Tommie Burnett RN - 06/08/2025 10:53 AM CDT Auth has been received for MRIs, orders faxed back to [facility] stating auth was received * Telephone Encounter - Tamar Keenan - 06/08/2025 8:47 AM CDT PRE CERT order scanned into chart * Telephone Encounter - Che French - 05/14/2025 10:26 AM CDT PT notes scanned into chart * Telephone Encounter - Annamarie Ramos - 05/13/2025 10:11 AM CDT Department of Neurological Surgery at [facility] Spine Intake 05/13/25 Rasta Weber 1965 [id number] Corey De La O, DO Are you a New or Returning Pt? new Referring physician Sandor Paredes Referred to: First Available: Second Opinion: No Insurance: Commercial Insurance: Name of Plan [facility] employees Send Letter to PCP for Insurance Auth: Yes Litigation: the act, process, or practice of settling a dispute in a court of law. Active litigation pertaining to this disease process? No Has the patient had spinal surgery within the last year? No If direct referral, contracted insurance and 4 months post operative - please send to provider [facility] [place]: Diagnosis: Lumbar radiculopathy Location (Spinal Area): Lumbar Imaging Done within Last Year: Yes List ALL MRI Imaging Location: [facility] FAX Records Requested: In [facility] HT: 5'1 WT: 148 pounds BMI: 28.0 Weakness: Yes Numbness: Yes Spinal Pain: lower back, both leg(s), both hip(s), both knee(s), and both Feet/toes Loss of bowel or bladder control: No Duration of symptoms: -- Spine surgery - within last 10 years: No Physical therapy within last year Yes Location: [place] [facility] FAX Records Requested: Yes Pain Management (Injections) within last year No Do you use any form of Nicotine?: Yes Reason for visit: New Pt Appt Date: 05/21/2025 Time: 11:30am Location: [facility] ([facility]) Provider Dr. Horton Routed: BUSHRA Horton [...] on filedocumented in this encounter Care Teams Flat Ironer Relationship Specialty Start Date End Date Corey De La O DO PCP - General Internal Medicine 03/25/25 documented as of this encounter
== END 2025-08-27 13:00 | disposition home or self-care (01) ==
PROVIDERS: Emergency Provider Student in an Organized Health Care Education/Training Program; PCP Internal Medicine
DX: S82.832A Other fracture of upper and lower end of left fibula, initial encounter for closed fracture (principal); I35.0 Nonrheumatic aortic (valve) stenosis; I10 Essential (primary) hypertension; E11.9 Type 2 diabetes mellitus without complications; E78.49 Other hyperlipidemia; G47.33 Obstructive sleep apnea (adult) (pediatric); M21.379 Foot drop, unspecified foot; F41.9 Anxiety disorder, unspecified; F17.210 Nicotine dependence, cigarettes, uncomplicated; Z79.82 Long term (current) use of aspirin; Z79.899 Other long term (current) drug therapy; W18.39XA Other fall on same level, initial encounter
CPT/HCPCS: 29515; 73564; 73610; 96372; 99284; A9270; J1885

== ENCOUNTER 2025-09-14 13:27 | Outpatient (CLI) | payer OTHER, SELFPAY ==
--- NOTE | ~2025-09-14 | CT_ITS ---
EXAMINATION: CT left knee without contrast: DATE: 09/14/2025 INDICATION: 60-year-old sustaining trauma due to fall on August 27. Persistent medial knee pain. No prior surgery. Finding of proximal fibula fracture on knee x-ray. TECHNIQUE: CT was performed without contrast and multiplanar reconstruction of the. Radiation dose 186 mgy C.M. COMPARISON: Left knee x-ray dated 08/27/2025. FINDINGS: Healing fracture of the neck of the fibula is noted, consistent with the radiograph of 08/27/2025. No other acute or subacute fractures are seen at the left knee. Good sized effusion is noted in the knee joint. No osteochondral loose bodies are seen in the fluid. IMPRESSION: 1. Healing fracture of the neck of the fibula. 2. Good sized effusion in the knee joint. If there is persistent clinical symptoms additional evaluation with MRI is recommended to rule out internal, if there are no contraindications for MRI. Reviewed, dictated and finalized at location T. IC DEFENDER IMPRESSION: 1. Healing fracture of the neck of the fibula. 2. Good sized effusion in the knee joint. If there is persistent clinical sympt oms additional evaluation with MRI is recommended to rule out internal, if ther e are no contraindications for MRI.
== END 2025-09-14 13:28 | disposition home or self-care (01) ==
LOC: MICIMG 13:27
PROVIDERS: PCP Internal Medicine; Visit Provider Orthopaedic Surgery
DX: M25.562 Pain in left knee (principal)
CPT/HCPCS: 73700